=== PATIENT | female | born 1945 | race Caucasian/White ===

== ENCOUNTER 2016-11-29 10:00 | Emergency (ER) | payer MEDICARE, OTHER ==
[~2016-11-29] VITALS: Ht 162.6 cm; Wt 61.4 kg
[~2016-11-29 10:00] MED LIST: ALBU2.5V5 NEB; ALBU8.5H3 IH; ALPR1TAB2 PO; ASCO500T2 PO; ASPI81TA2 PO; ATOR10TA PO; ATOR10TA60 PO; BENZ100C2 PO; BUPR150T8 PO; BUPR200T PO; CALC500T27 PO; CARV12.5 PO; CHOL10003 PO; COFF400C PO; DEXT30CA6 PO; DICY20TA30 PO; DOCU-27 PO; ENOX40DI3 SQ; ESCI20TA10 PO; FISH1CAP PO; FLUO40CA9 PO; FLUT1BLS IH; FLUT1DIS3 IH; FLUT1DIS5 IH; GLUC1CAP48 PO; GUAI-42 PO; HYDR-2762 PO; HYDR-2868 PO; IBUP800T PO; IPRA3AMP NEB; LEVO50TA PO; LEVO88TA2 PO; LORA-434 PO; LOSA1TAB12 PO; LOSA1TAB17 PO; LUBI8CAP3 PO; LUTE20TA PO; MAGN2400 PO; MAGN250T5 PO; MELA10CA PO; MELA3TAB PO; MIRT15TA PO; MONT10TA9 PO; MULT-245 PO; OMEP40CA5 PO; PANT40TA3 PO; PARO20TA55 PO; POTA10CA PO; POTA20TA82 PO; POTA8TAB6 PO; PRED1TAB PO; PROC10TA57 PO; QUET100T PO; QUET150T PO; ROFL500T PO; TIOT18CA IH; UBID100C12 PO; VINP1POW MC; adderall PO; prevagen PO
[2016-11-29] MEDS ORDERED: IPRATRPIUM/ALBUTEROL 0.5/2.5MG 3 ML NEBU. ONE (10:23)
[2016-11-29 10:34] LABS: BASO % 0 % (0-3); EOS # 0.1 x10^3/uL (0.0-0.7); EOS % 1 % (0-3); HEMATOCRIT 36.2 % (36.0-47.0); HEMOGLOBIN 11.5 g/dL (12.0-15.5); LYMPH # 0.9 x10^3/uL (1.0-4.8); LYMPH % 11 % (24-48); MEAN CORPUSCULAR HEMOGLOBIN 29 pg (25-35); MEAN CORPUSCULAR HGB CONC 32 g/dL (31-37); MEAN CORPUSCULAR VOLUME 92 fL (79-100); MONO # 0.6 x10^3/uL (0.0-1.1); MONO % 8 % (0-9); NEUT # 6.8 x10^3uL (1.8-7.7); NEUT % 80 % (31-73); PLATELET COUNT 483 x10^3/uL (140-400); RED BLOOD COUNT 3.91 x10^6/uL (3.50-5.40); RED CELL DISTRIBUTION WIDTH 18.7 % (11.5-14.5); WHITE BLOOD COUNT 8.5 x10^3/uL (4.0-11.0)
[2016-11-29 10:35] LABS: HEMOGLOBIN ISTAT 12.6 gm/dL; POTASSIUM ISTAT 3.5 mmol/L (3.5-5.0)
[2016-11-29] MEDS ORDERED: FUROSEMIDE 40 MG/4 ML VIAL ONE (10:38)
[2016-11-29 10:48] LABS: ALBUMIN 3.4 g/dL (3.4-5.0); ALBUMIN/GLOBULIN RATIO 0.8 (1.0-1.7); CALCIUM 9.6 mg/dL (8.5-10.1); CREATININE 0.7 mg/dL (0.6-1.0); GFR 82.5; POTASSIUM 3.2 mmol/L (3.5-5.1); TOTAL BILIRUBIN 0.3 mg/dL (0.2-1.0); TOTAL PROTEIN 7.5 g/dL (6.4-8.2)
[2016-11-29 10:58] LABS: BGAS PH 7.35 (7.35-7.45)
[2016-11-29] MEDS ORDERED: IOHEXOL 300 MG/ML 75 ML VIAL. IV ONE (11:00)
--- NOTE | 2016-11-29 11:01 | RAD ---
EXAM: Chest, single view. HISTORY: Chest pain. COMPARISON: 11/09/2016. FINDINGS: A frontal view of the chest is obtained. There is no infiltrate, effusion or pneumothorax. The cardiac silhouette is upper normal in size, likely due to portable technique. There are few calcified granulomas.. IMPRESSION: No acute pulmonary finding.
[2016-11-29] MEDS ORDERED: methylPREDNISolone SOD SUCC PF 125 MG/2 ML VIAL. IV ONE (11:10)
[2016-11-29] MEDS ORDERED: FUROSEMIDE 40 MG/4 ML VIAL IVP ONE (11:10)
--- NOTE | 2016-11-29 11:16 | ED.ADGEN ---
Past History Past Medical History: COPD Past Surgical History: , Hysterectomy Smoking: Quit Greater Than 1 Year Alcohol Use: None Drug Use: None Adult General Chief Complaint Chief Complaint Shortness of breath HPI HPI Patient is a 71-year-old female with history of COPD currently residing snf for treatment of rib fractures and bilateral lower extremity fractures resents today acute respiratory distress. Patient states she been short of breath last night, had a set of wet nonproductive cough and breathlessness became more short of breath this morning. She denies fever chills or sweats. EMS was contacted, the patient normally requires 2-1/2 L of supplemental oxygen by nasal cannula. On EMS arrival, patient's O2 saturation was 87% on 4 L. She was placed in a nonrebreather mask on 100% O2. On ED arrival, the patient's respirations are labored with sternal retractions. Breath sounds are diminished bilaterally. Patient is able to speak in 3-5 word sentences. Review of Systems Review of Systems ROS as per HPI. Current Medications Current Medications Current Medications Medications (Trade) Dose Ordered Sig/Ankit Start Time Stop Time Status Last Admin Dose Admin Albuterol/ Ipratropium (Duoneb) 3 ml STK-MED ONCE 11/29/16 10:23 11/29/16 10:24 DC Furosemide (Lasix) 40 mg STK-MED ONCE 11/29/16 10:38 11/29/16 10:39 DC Iohexol (Omnipaque 300 Mg/ml) 75 ml 1X ONCE 11/29/16 11:00 11/29/16 11:01 DC Lorazepam (Ativan) 0.5 mg 1X ONCE 11/29/16 11:30 11/29/16 11:31 11/29/16 11:12 0.5 MG Methylprednisolone Sodium Succinate (Solu-Medrol 125mg Vial) 125 mg 1X ONCE 11/29/16 11:10 11/29/16 11:11 DC 11/29/16 10:41 125 MG Allergies Allergies Allergies Coded Allergies Type Severity Reaction Last Updated Verified Latex, Natural Rubber Allergy Intermediate 11/29/16 No bacitracin Allergy Intermediate 11/29/16 No Physical Exam Physical Exam Constitutional: Well nourished, developed, anxious, moderate respiratory distress HENT: Normocephalic, atraumatic, bilateral external ears normal, oropharynx moist, no oral exudates, nose normal. [] Eyes: PERRLA, EOMI, conjunctiva normal. Neck: Normal range of motion, no tenderness, supple. Cardiovascular:Heart rate regular rhythm, no murmur. Lungs & Thorax: Respirations labored, tachypnea, significantly diminished breath sounds bilaterally, worse rhonchi present throughout. Abdomen: Bowel sounds normal, soft, no tenderness. Skin: Warm, dry, no erythema, no rash. Extremities: Left lower extremity, cast. Right lower lobe extremity, 1+ edema. Neurologic: Alert and oriented X 3, normal motor function, normal sensory function, no focal deficits noted. . [] Current Patient Data Vital Signs Vital Signs Date Time Temp Pulse Resp B/P Pulse Ox O2 Delivery O2 Flow Rate FiO2 11/29/16 11:09 139 21 159/67 91 BiPAP/CPAP 11/29/16 10:48 7.0 11/29/16 10:10 98.0 Lab Results Laboratory Tests Test 11/29/16 09:30 11/29/16 10:13 11/29/16 10:32 11/29/16 11:00 Blood pH 7.35 (7.35-7.45) Blood Gas PCO2 65mmHg (35-45) *H Blood Gas PO2 203mmHg (71-100) H Blood Gas HCO3 35mmol/L (22-26) H Arterial Bld O2 Saturation (Calc) 99% (92-99) FiO2 48% White Blood Count 8.5x10^3/uL (4.0-11.0) Red Blood Count 3.91x10^6/uL (3.50-5.40) Hemoglobin 11.5g/dL (12.0-15.5) L Hematocrit 36.2% (36.0-47.0) Mean Corpuscular Volume 92fL (79-100) Mean Corpuscular Hemoglobin 29pg (25-35) Mean Corpuscular Hemoglobin Concent 32g/dL (31-37) Red Cell Distribution Width 18.7% (11.5-14.5) H Platelet Count 483x10^3/uL (140-400) H Neutrophils (%) (Auto) 80% (31-73) H Lymphocytes (%) (Auto) 11% (24-48) L Monocytes (%) (Auto) 8% (0-9) Eosinophils (%) (Auto) 1% (0-3) Basophils (%) (Auto) 0% (0-3) Neutrophils # (Auto) 6.8x10^3uL (1.8-7.7) Lymphocytes # (Auto) 0.9x10^3/uL (1.0-4.8) L Monocytes # (Auto) 0.6x10^3/uL (0.0-1.1) Eosinophils # (Auto) 0.1x10^3/uL (0.0-0.7) Basophils # (Auto) 0.0x10^3/uL (0.0-0.2) Prothrombin Time 49.9SEC (9.4-11.4) H Prothrombin Time INR 4.8 (0.9-1.1) *H Sodium Level 140mmol/L (136-145) Potassium Level 3.2mmol/L (3.5-5.1) L Chloride Level 99mmol/L (98-107) Carbon Dioxide Level 36mmol/L (21-32) H Anion Gap 5 (6-14) L 14mmol/L (6-14) Blood Urea Nitrogen 13mg/dL (7-20) Creatinine 0.7mg/dL (0.6-1.0) Estimated GFR (Cockcroft-Gault) 82.5 BUN/Creatinine Ratio 19 (6-20) Glucose Level 121mg/dL (70-99) H 119mg/dL (60-99) H Calcium Level 9.6mg/dL (8.5-10.1) Total Bilirubin 0.3mg/dL (0.2-1.0) Aspartate Amino Transferase (AST) 22U/L (15-37) Alanine Aminotransferase (ALT) 18U/L (14-59) Alkaline Phosphatase 122U/L (46-116) H RB-Qup-M-Type Natriuretic Peptide 216pg/mL (0-124) H Total Protein 7.5g/dL (6.4-8.2) Albumin 3.4g/dL (3.4-5.0) Albumin/Globulin Ratio 0.8 (1.0-1.7) L POC Hemoglobin 12.6gm/dL POC Hematocrit 37% POC Sodium 138mmol/L (135-145) POC Potassium 3.5mmol/L (3.5-5.0) POC Chloride 91mmol/L (98-110) L POC Total CO2 38mmol/L (23-32) H POC Blood Urea Nitrogen 14mg/dL (8-26) POC Creatinine 0.6mg/dL (0.5-1.4) POC Ionized Calcium (Scott) 1.18mmol/L (1.13-1.32) Urine Collection Type U cath Urine Color Yellow Urine Clarity Clear Urine pH 7.0 Urine Specific [place] 1.015 Urine Protein Neg (NEG-TRACE) Urine Glucose (UA) Negmg/dL (NEG) Urine Ketones (Stick) 15mg/dL (NEG) Urine Blood Trace (NEG) Urine Nitrite Neg (NEG) Urine Bilirubin Neg (NEG) Urine Urobilinogen Dipstick 0.2mg/dL (0.2 mg/dL) Urine Leukocyte Esterase Neg (NEG) Urine RBC Occ/HPF (0-2) Urine WBC Occ/HPF (0-4) Urine Squamous Epithelial Cells Occ/LPF Urine Bacteria 0/HPF (0-FEW) Urine Hyaline Casts Occ/HPF EKG EKG [EKG: Sinus tach, interpretation limited due to artifact.] Radiology/Procedures Radiology/Procedures [Chest x-ray: Increased pulmonary vascular congestion with COPD findings] Impressions: Acute respiratory distress with respiratory failure secondary to acute COPD exacerbation with concern for mucous plugging Course & Med Decision Making Course & Med Decision Making Pertinent Labs and Imaging studies reviewed. (See chart for details) [Solu-Medrol, Albuterol nebulized treatment given, BiPAP initiated. Patient breathing more comfortably, but remains tachycardic. Concern for possible mucous plugging. Dr. Herrera accepts to [facility] ICU. Final Impression Final Impression 1 acute respiratory failure with hypercapnia 2 COPD exacerbation] Problems: Dragon Disclaimer Dragon Disclaimer This electronic medical record was generated, in whole or in part, using a voice recognition dictation system. HIPOLITO NAIK DO Nov 29, 2016 11:16
[2016-11-29 11:18] LABS: BILIRUBIN,URINE NEG (NEG); CLARITY,URINE CLEAR; COLOR,URINE YELLOW; GLUCOSE,URINE NEG (NEG)
[2016-11-29 11:19] LABS: BACTERIA,URINE 0 /HPF (0-FEW); HYALINE CASTS, URINE OCC /HPF; NITRITE,URINE NEG (NEG); RBC,URINE OCC /HPF (0-2); SQUAMOUS EPITHELIAL CELL,UR OCC /LPF; UROBILINOGEN,URINE 0.2 mg/dL (0.2 mg/dL); WBC,URINE OCC /HPF (0-4)
[2016-11-29] MEDS ORDERED: LORAZEPAM 2 MG/ML VIAL IV ONE (11:30)
--- NOTE | 2016-11-29 11:45 | ACF ---
Admission Criteria Forms RESPIRATORY FAILURE GRG Clinical Indications for Admission to Inpatient Care (Place 'X' for any and all applicable criteria): Hospital admission is needed for appropriate care of the patient because of acute respiratory failure or insufficiency as indicated by ANY ONE of the following(1)(2)(3)(4)(5)(6)(7)(8): [X]I. Mechanical ventilation needed (acute invasive or noninvasive) [ ]II. Severe ventilation deficit as indicated by ANY ONE of the following (9) [ ]a) Respiratory acidosis (pH less than 7.32 and partial pressure of carbon dioxide greater than 40 mm Hg (5.3 kPa)) [ ]b) Partial pressure of carbon dioxide greater than 44 mm Hg (5.9 kPa ) (new) [ ]c) Airflow measurements less than 25% of predicted (eg, peak expiratory flow rate less than 100 L/minute) [ ]d) Forced vital capacity less than 15 mL/kg of ideal body weight, or 50% decrease in vital capacity from baseline [ ]III. Noncardiac pulmonary edema not resolving with rapid emergency treatment (8) [ ]IV. Severe respiratory distress as indicated by ANY ONE of the following: [ ]a) Severe tachypnea (respiratory rate greater than 30, greater than 45 for 6-month-old, greater than 60 for ) [ ]b) Severe hypoxemia (partial pressure of oxygen less than 50 mm Hg ( 6.7 kPa) on greater than 50% oxygen or partial pressure of oxygen to FIO2 ratio less than 200) [ ]c) Mental status deterioration from respiratory disease [ ]V. Airway obstruction or inadequate protection [A](10)(11) The original [employer] content created by [employer] has been revised. The portions of the content which have been revised are identified through the use of italic text or in bold, and [employer] has neither reviewed nor approved the modified material. All other unmodified content is copyright [employer]. Please see references footnoted in the original [employer] edition 2016 Admission Criteria Met?: Yes CA EASTMAN Nov 29, 2016 11:45
--- NOTE | 2016-11-29 12:18 | EKG ---
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
[2016-11-29 12:37] VITALS: BP 155/89
== END 2016-11-29 12:43 | disposition short-term general hospital (02) ==
LOC: ER 10:00
DX: J44.1 Chronic obstructive pulmonary disease with (acute) exacerbation (principal); J96.02 Acute respiratory failure with hypercapnia; Z88.1 Allergy status to other antibiotic agents; Z91.040 Latex allergy status; Z90.710 Acquired absence of both cervix and uterus; Z87.891 Personal history of nicotine dependence
CPT/HCPCS: 36415; 36600; 51702; 71010; 80053; 81001; 82803; 83880; 84484; 85027; 85610; 87040; 93005; 94640; 94660; 96374; 96375; 99285; J1940; J2060; J2930; 80047

== ENCOUNTER 2017-03-15 20:40 | Emergency (ER) | payer MEDICARE, OTHER ==
[~2017-03-15] VITALS: Ht 162.6 cm; Wt 61.4 kg
[~2017-03-15 20:40] MED LIST changes: -ALBU8.5H3 IH; +ALBU8.5H8 IH; +ASPI-630 PO; -ASPI81TA2 PO; +BENZ100C15 PO; -BENZ100C2 PO; -CALC500T27 PO; +CALC500T30 PO; +DOCU-109 PO; -DOCU-27 PO; -ESCI20TA10 PO; +GUAI-107 PO; -GUAI-42 PO; -IBUP800T PO; +IBUP800T19 PO; +LEXAPRO20 MG PO; -LUBI8CAP3 PO; +LUBI8CAP4 PO; +MAGN250T10 PO; -MAGN250T5 PO; -MELA3TAB PO; +MELA3TAB2 PO; -PARO20TA55 PO; +PARO20TA99 PO; -ROFL500T PO; +ROFL500T7 PO; -UBID100C12 PO; +UBID100C40 PO
[2017-03-15] MEDS ORDERED: IV NORMAL SALINE 1,000ML 1,000 ML IV ONE (21:15)
[2017-03-15 21:54] LABS: BGAS PH 7.35 (7.35-7.45)
--- NOTE | 2017-03-15 22:00 | EKG ---
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
--- NOTE | 2017-03-15 22:05 | RAD ---
CT HEAD PQRS STATEMENT: One or more of the following in the visualized dose reduction techniques were utilized for this study: 1. Automatic exposure control, 2. Adjustment of the mA and/or kV according to patient size, 3. Use of iterative reconstruction technique INDICATION: AMS, HX STROKE TECHNIQUE: 5 mm contiguous axial images were obtained from the skull base to the vertex in both bone and soft tissue algorithm. FINDINGS: There is an cephalization the right posterior cerebral artery distribution from an old infarct. No evidence of intracranial hemorrhage. No extra-axial fluid collections. No mass effect or midline shift. Ventricular size is appropriate. Basal cisterns are patent. No fractures identified.Ortiz-white differentiation is preserved.Globes and orbits are within normal limits. Paranasal sinuses and mastoid air cells are clear. IMPRESSION: No acute intracranial abnormality. 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 Electronically signed by: Nikhil Shane MD (03/15/2017 10:02 PM) [facility]
[2017-03-15 22:16] LABS: BASO # 0.1 x10^3/uL (0.0-0.2); BASO % 1 % (0-3); EOS # 0.4 x10^3/uL (0.0-0.7); EOS % 5 % (0-3); HEMATOCRIT 32.8 % (36.0-47.0); HEMOGLOBIN 10.6 g/dL (12.0-15.5); LYMPH # 2.4 x10^3/uL (1.0-4.8); LYMPH % 32 % (24-48); MEAN CORPUSCULAR HEMOGLOBIN 29 pg (25-35); MEAN CORPUSCULAR HGB CONC 32 g/dL (31-37); MEAN CORPUSCULAR VOLUME 91 fL (79-100); MONO # 0.4 x10^3/uL (0.0-1.1); MONO % 6 % (0-9); NEUT # 4.2 x10^3uL (1.8-7.7); NEUT % 56 % (31-73); PLATELET COUNT 419 x10^3/uL (140-400); RED BLOOD COUNT 3.62 x10^6/uL (3.50-5.40); RED CELL DISTRIBUTION WIDTH 15.6 % (11.5-14.5); WHITE BLOOD COUNT 7.4 x10^3/uL (4.0-11.0)
--- NOTE | 2017-03-15 22:22 | PHYS DOC ---
Past History Past Medical History: COPD Past Surgical History: , Hysterectomy, Other Smoking: Quit Greater Than 1 Year Alcohol Use: None Drug Use: None Adult General Chief Complaint Chief Complaint: FATIGUE HPI HPI Patient is a 71-year-old female presenting to the emergency department via EMS for evaluation of increased lethargy that started this morning. Patient said that she'll he took one of her hydrocodone this morning and has not taken any since. She was reportedly difficult to arouse per the and he had to shake her to wake her up. Patient is a COPD patient and on 2-3 L of oxygen at baseline. Patient denies any pain fevers chills nausea vomiting or other systemic symptoms. Review of Systems Review of Systems Constitutional: Denies fever or chills [] Eyes: Denies change in visual acuity, redness, or eye pain [] HENT: Denies nasal congestion or sore throat [] Respiratory: Denies cough or shortness of breath [] Cardiovascular: No additional information not addressed in HPI [] GI: Denies abdominal pain, nausea, vomiting, bloody stools or diarrhea [] : Denies dysuria or hematuria [] Musculoskeletal: Denies back pain or joint pain [] Integument: Denies rash or skin lesions [] Neurologic: Denies headache, focal weakness or sensory changes Current Medications Current Medications Current Medications Medications (Trade) Dose Ordered Sig/Ankit Start Time Stop Time Status Last Admin Dose Admin Sodium Chloride 1,000 ml @ 1,000 mls/hr 1X ONCE 03/15/17 21:15 03/15/17 22:14 DC Allergies Allergies Allergies Coded Allergies Type Severity Reaction Last Updated Verified Latex, Natural Rubber Allergy Intermediate 11/29/16 No bacitracin Allergy Intermediate 11/29/16 No Physical Exam Physical Exam Constitutional: Well developed, well nourished, no acute distress, non-toxic appearance. [] HENT: Normocephalic, atraumatic, bilateral external ears normal, oropharynx moist, no oral exudates, nose normal. [] Eyes: PERRLA, EOMI, conjunctiva normal, no discharge. [] Neck: Normal range of motion, no tenderness, supple, no stridor. [] Cardiovascular:Heart rate regular rhythm, no murmur [] Lungs & Thorax: Bilateral breath sounds clear to auscultation [] Abdomen: Bowel sounds normal, soft, no tenderness, no masses, no pulsatile masses. [] Skin: Warm, dry, no erythema, no rash. [] Back: No tenderness, no CVA tenderness. [] Extremities: No tenderness, no cyanosis, no clubbing, ROM intact, no edema. [] Neurologic: Alert and oriented X 3, normal motor function, normal sensory function, no focal deficits noted. [] Current Patient Data Vital Signs Vital Signs Date Time Temp Pulse Resp B/P (MAP) Pulse Ox O2 Delivery O2 Flow Rate FiO2 03/15/17 20:40 98.3 89 21 95 Nasal Cannula 3.0 Lab Results Laboratory Tests Test 03/15/17 21:40 03/15/17 21:50 Blood pH 7.35 (7.35-7.45) Blood Gas PCO2 54 mmHg (35-45) H Blood Gas PO2 90 mmHg (71-100) Blood Gas HCO3 30 mmol/L (22-26) H Arterial Bld O2 Saturation (Calc) 96 % (92-99) FiO2 32 % White Blood Count 7.4 x10^3/uL (4.0-11.0) Red Blood Count 3.62 x10^6/uL (3.50-5.40) Hemoglobin 10.6 g/dL (12.0-15.5) L Hematocrit 32.8 % (36.0-47.0) L Mean Corpuscular Volume 91 fL (79-100) Mean Corpuscular Hemoglobin 29 pg (25-35) Mean Corpuscular Hemoglobin Concent 32 g/dL (31-37) Red Cell Distribution Width 15.6 % (11.5-14.5) H Platelet Count 419 x10^3/uL (140-400) H Neutrophils (%) (Auto) 56 % (31-73) Lymphocytes (%) (Auto) 32 % (24-48) Monocytes (%) (Auto) 6 % (0-9) Eosinophils (%) (Auto) 5 % (0-3) H Basophils (%) (Auto) 1 % (0-3) Neutrophils # (Auto) 4.2 x10^3uL (1.8-7.7) Lymphocytes # (Auto) 2.4 x10^3/uL (1.0-4.8) Monocytes # (Auto) 0.4 x10^3/uL (0.0-1.1) Eosinophils # (Auto) 0.4 x10^3/uL (0.0-0.7) Basophils # (Auto) 0.1 x10^3/uL (0.0-0.2) EKG EKG Normal sinus rhythm at 87 bpm with normal axis no obvious ST elevation or depression and normal T waves. Radiology/Procedures Radiology/Procedures Chest x-ray shows hyperinflation no obvious free air or pneumothorax or opacity. CT HEAD PQRS STATEMENT: One or more of the following in the visualized dose reduction techniques were utilized for this study: 1. Automatic exposure control, 2. Adjustment of the mA and/or kV according to patient size, 3. Use of iterative reconstruction technique INDICATION: AMS, HX STROKE TECHNIQUE: 5 mm contiguous axial images were obtained from the skull base to the vertex in both bone and soft tissue algorithm. FINDINGS: There is an cephalization the right posterior cerebral artery distribution from an old infarct. No evidence of intracranial hemorrhage. No extra-axial fluid collections. No mass effect or midline shift. Ventricular size is appropriate. Basal cisterns are patent. No fractures identified.Ortiz-white differentiation is preserved.Globes and orbits are within normal limits. Paranasal sinuses and mastoid air cells are clear. IMPRESSION: No acute intracranial abnormality. 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 Electronically signed by: Nikhil Shane MD (03/15/2017 10:02 PM) [facility] DICTATED AND SIGNED BY: NIKHIL SHANE MD DATE: 03/15/17 2200 Course & Med Decision Making Course & Med Decision Making Patient with undifferentiated lethargy but she is awake and alert and oriented 3 on my exam. We'll check screening labs CT and reassess. CO2 is slightly elevated I do not think this is the cause of her lethargy. Patient does have alcohol in her system which was surprising to me and I asked and they said that she had 5 ounces of alcohol today. Patient is now awake alert and oriented eating and drinking and in no obvious distress. I told him it is very dangerous for her to be drinking alcohol with opioids in addition to her COPD as she could stop breathing and at any time with multiple respiratory depressants in her system. Patient wants to go home and wants to take her home as well. I see no reason for emergent admission at this times she'll be discharged in stable condition. They said that she is on Coumadin however her INR is 1.0 psych told him that they need to be taking the warfarin and have her INR rechecked as she may be resistant to it. She has no signs or symptoms of DVT or PE at this time so she'll be discharged in stable condition told to avoid respiratory depressants follow with Dr. Perez tomorrow or the next day and come back to the ER sooner with any worsening pain fevers vomiting or other general concerns. Patient and verbalized understanding of the above plan. Dragon Disclaimer Dragon Disclaimer This chart was dictated in whole or in part using Voice Recognition software in a busy, high-work load, and often noisy Emergency Department environment. It may contain unintended and wholly unrecognized errors or omissions. Departure Departure: Impression: Primary Impression: Lethargy Additional Impressions: Alcohol abuse Narcotic drug use COPD (chronic obstructive pulmonary disease) Disposition: 01 HOME, SELF-CARE Condition: GOOD Referrals: CLARA SAXENA MD (PCP) Patient Instructions: Fatigue Additional Instructions: FOLLOW WITH YOUR PCP LATER THIS WEEK. COME BACK TO THE ED WITH ANY NEW OR WORSENING PAIN, FEVERS, OR OTHER GENERAL CONCERNS. THANK YOU! Problem Qualifiers SAUD RUBY DO Mar 15, 2017 22:22
[2017-03-15 22:29] LABS: ACETAMIN < 2.0 mcg/mL (10-30); ETHANOL 132 mg/dL (0-10); SALIC 0.5 mg/dL (2.8-20.0)
[2017-03-15 22:33] LABS: ALBUMIN 3.2 g/dL (3.4-5.0); ALBUMIN/GLOBULIN RATIO 0.8 (1.0-1.7); CALCIUM 9.3 mg/dL (8.5-10.1); CREATININE 0.8 mg/dL (0.6-1.0); GFR 70.7; MAGNESIUM 1.6 mg/dL (1.8-2.4); POTASSIUM 4.6 mmol/L (3.5-5.1); TOTAL BILIRUBIN 0.2 mg/dL (0.2-1.0); TOTAL PROTEIN 7.1 g/dL (6.4-8.2)
[2017-03-15 22:41] LABS: BARBITURATES NEG (NEG); BENZODIAZEPINES POS (NEG); CANNABINOIDS NEG (NEG); COCAINE NEG (NEG); METHADONE NEG (NEG); OPIATES POS (NEG); PHENCYCLIDINE NEG (NEG)
[2017-03-15 22:45] LABS: AMPHETAMINE/METHAMPHETAMINE POS (NEG)
[2017-03-15] MEDS ORDERED: MAGNESIUM OXIDE 400 MG TABLET PO ONE (23:00)
[2017-03-15 23:02] LABS: BILIRUBIN,URINE NEG (NEG); CLARITY,URINE CLEAR; COLOR,URINE YELLOW; GLUCOSE,URINE NEG (NEG)
[2017-03-15 23:03] LABS: BACTERIA,URINE 0 /HPF (0-FEW); NITRITE,URINE NEG (NEG); RBC,URINE RARE /HPF (0-2); SQUAMOUS EPITHELIAL CELL,UR FEW /LPF; UROBILINOGEN,URINE 0.2 mg/dL (0.2 mg/dL)
[2017-03-15 23:04] LABS: HYALINE CASTS, URINE FEW /HPF
[2017-03-15 23:55] VITALS: BP 118/68
--- NOTE | 2017-03-16 07:59 | RAD ---
Portable chest, 03/15/2017: History: Altered mental status, dehydration Comparison is made to a study from 11/29/2016. The heart size and pulmonary vascularity are normal. There is mild tortuosity of the thoracic aorta. There are mild scattered parenchymal scars. A calcified granuloma is present in the right base. There appears to be minimal right basilar linear atelectasis. No pulmonary consolidation is seen. There is no evidence of pleural fluid. IMPRESSION: Minimal right basilar atelectasis and/or scarring.
== END 2017-03-16 00:23 | disposition home or self-care (01) ==
LOC: ER 20:40
DX: R53.83 Other fatigue (principal); F10.10 Alcohol abuse, uncomplicated; F19.10 Other psychoactive substance abuse, uncomplicated; J44.9 Chronic obstructive pulmonary disease, unspecified; Z79.01 Long term (current) use of anticoagulants; Z87.891 Personal history of nicotine dependence; Z88.1 Allergy status to other antibiotic agents; Z91.040 Latex allergy status
CPT/HCPCS: 36415; 36600; 70450; 71010; 80053; 80305; 81001; 82550; 82803; 83690; 83735; 83880; 84443; 84484; 85027; 85610; 85730; 93005; 96360; 99285; G0480; G0481; J7030

== ENCOUNTER → 2017-10-13 | Outpatient (CLI) | payer MEDICARE, OTHER ==
[~2017-10-13] MED LIST changes: +BENZ-8 PO; -BENZ100C15 PO; -GUAI-107 PO; +GUAI-108 PO; -LOSA1TAB17 PO; +LOSA1TAB22 PO
== END | disposition home or self-care (01) ==
LOC: CLNUT 16:23
PROVIDERS: ATTEND Family Medicine
DX: Z71.3 Dietary counseling and surveillance (principal); E11.65 Type 2 diabetes mellitus with hyperglycemia; I10 Essential (primary) hypertension; Z87.891 Personal history of nicotine dependence
CPT/HCPCS: 97802

== ENCOUNTER 2018-02-13 17:42 | Inpatient (IN) | payer MEDICARE, OTHER ==
[~2018-02-13] VITALS: Ht 162.6 cm; Wt 59.0 kg
[~2018-02-13 17:42] MED LIST changes: +LORA-254 PO; -LORA-434 PO
--- NOTE | 2018-02-13 18:05 | NUR ---
The patient, HERIBERTO GIL, 72 y/o, F admitted by CLARA SAXENA MD, was given written information regarding hospital policies, unit procedures and contact persons. Valuables were checked and noted.
[2018-02-13] MEDS ORDERED: ALBUTEROL SULFATE 2.5 MG/3 ML NEBU. NEB PRN (18:15)
[2018-02-13 18:19] VITALS: BP 94/63
[2018-02-13 19:46] LABS: BASO % 0 % (0-3); EOS # 0.2 x10^3/uL (0.0-0.7); EOS % 2 % (0-3); HEMATOCRIT 31.9 % (36.0-47.0); HEMOGLOBIN 10.7 g/dL (12.0-15.5); LYMPH # 1.2 x10^3/uL (1.0-4.8); LYMPH % 13 % (24-48); MEAN CORPUSCULAR HEMOGLOBIN 32 pg (25-35); MEAN CORPUSCULAR HGB CONC 34 g/dL (31-37); MEAN CORPUSCULAR VOLUME 96 fL (79-100); MONO # 0.9 x10^3/uL (0.0-1.1); MONO % 10 % (0-9); NEUT # 7.4 x10^3uL (1.8-7.7); NEUT % 76 % (31-73); PLATELET COUNT 287 x10^3/uL (140-400); RED BLOOD COUNT 3.34 x10^6/uL (3.50-5.40); RED CELL DISTRIBUTION WIDTH 14.2 % (11.5-14.5); WHITE BLOOD COUNT 9.8 x10^3/uL (4.0-11.0)
[2018-02-13] MEDS: IPRATRPIUM/ALBUTEROL 0.5/2.5MG 3 ML NEBU. NEB SCH (20:00)
[2018-02-13] MEDS ORDERED: IPRATRPIUM/ALBUTEROL 0.5/2.5MG 3 ML NEBU. NEB SCH (20:00)
[2018-02-13] MEDS ORDERED: ROFLUMILAST 500 MCG TABLET PO SCH (21:00)
[2018-02-13] MEDS ORDERED: QUETIAPINE FUMARATE 200 MG PO SCH (21:00)
[2018-02-13 21:16] LABS: SEDIMENTATION RATE 55 (0-25)
--- NOTE | 2018-02-13 21:16 | EKG ---
[address] [address] Test Date: 2018-02-13 Test Time: 21:11:25 Pat Name: HERIBERTO GIL Department: Room: 105 A Gender: F [employer]: : 1945 Requested By: CLARA SAXENA Order Number: [id number] Reading MD: Serjio Martinez Measurements Intervals [place] Rate: 72 P: 59 NV: 178 QRS: 36 QRSD: 84 T: 55 QT: 406 QTc: 446 Interpretive Statements SINUS RHYTHM QRS(T) CONTOUR ABNORMALITY CONSIDER ANTEROSEPTAL MYOCARDIAL DAMAGE POSSIBLY ABNORMAL ECG Electronically Signed On 02-20-2018 12:48:38 CDT by Serjio Martinez
[2018-02-13] MEDS ORDERED: PROCHLORPERAZINE 5 MG TABLET. PO PRN (21:30)
[2018-02-13] MEDS: IV DEXTROSE 5 %-0.2 % NACL 1,000 ML IV SCH (21:30)
[2018-02-13 21:49] LABS: ALBUMIN 3.3 g/dL (3.4-5.0); ALBUMIN/GLOBULIN RATIO 0.9 (1.0-1.7); CALCIUM 9.4 mg/dL (8.5-10.1); CREATININE 1.2 mg/dL (0.6-1.0); GFR 44.2; POTASSIUM 4.2 mmol/L (3.5-5.1); TOTAL BILIRUBIN 0.5 mg/dL (0.2-1.0)
[2018-02-13 22:15] VITALS: BP 105/68
[2018-02-13] MEDS: CHOLECALCIFEROL (VITAMIN D3) 1,000 UNIT TABLET PO SCH (22:19)
[2018-02-13] MEDS: BENZONATATE 100 MG CAPSULE. PO SCH (22:19)
[2018-02-13] MEDS: GLUCOSAMINE/CHOND 500/400MG CAPSULE PO SCH (22:20)
[2018-02-13] MEDS: CALCIUM CARBONATE 500 MG TABLET PO SCH (22:20)
[2018-02-13] MEDS: HYDROcodone/APAP 7.5/325MG 1 TAB TABLET PO PRN (22:20)
[2018-02-13] MEDS: MIRTAZAPINE 15 MG TABLET PO SCH (22:20)
[2018-02-13] MEDS: guaiFENesin DM 600/30MG 1 TAB TAB.ER.12H PO SCH (22:20)
[2018-02-13] MEDS: DOCUSATE SODIUM 100 MG CAPSULE PO SCH (22:20)
[2018-02-13] MEDS: ALPRAZolam 0.5 MG TABLET PO SCH (22:20)
[2018-02-13] MEDS: hydrALAZINE 25 MG TABLET PO SCH (22:21)
[2018-02-13] MEDS: HEPARIN PF for SUB-Q USE 5,000 UNIT/0.5 ML VIAL. SQ SCH (22:22)
[2018-02-13 23:44] VITALS: BP 104/71
[2018-02-14] MEDS ORDERED: HYDR-2758 PO (00:37)
[2018-02-14] MEDS ORDERED: CALC600T23 PO (00:37)
[2018-02-14] MEDS ORDERED: POTA10TA10 PO (00:37)
[2018-02-14 01:48] LABS: BARBITURATES NEG (NEG); BENZODIAZEPINES POS (NEG); CANNABINOIDS NEG (NEG); COCAINE NEG (NEG); METHADONE NEG (NEG); OPIATES POS (NEG); PHENCYCLIDINE NEG (NEG)
[2018-02-14 01:50] LABS: BACTERIA,URINE 0 /HPF (0-FEW); BILIRUBIN,URINE NEG (NEG); CLARITY,URINE CLEAR; COLOR,URINE YELLOW; GLUCOSE,URINE NEG (NEG); NITRITE,URINE NEG (NEG); RBC,URINE 0 /HPF (0-2); UROBILINOGEN,URINE 0.2 mg/dL (0.2 mg/dL); WBC,URINE OCC /HPF (0-4)
[2018-02-14 02:03] LABS: AMPHETAMINE/METHAMPHETAMINE POS (NEG)
[2018-02-14] MEDS: IPRATRPIUM/ALBUTEROL 0.5/2.5MG 3 ML NEBU. NEB SCH ×4 (04:30→20:40)
[2018-02-14 05:51] VITALS: BP 95/61
[2018-02-14 06:38] LABS: BASO % 0 % (0-3); EOS # 0.3 x10^3/uL (0.0-0.7); EOS % 4 % (0-3); HEMATOCRIT 30.3 % (36.0-47.0); HEMOGLOBIN 10.2 g/dL (12.0-15.5); LYMPH # 2.4 x10^3/uL (1.0-4.8); LYMPH % 32 % (24-48); MEAN CORPUSCULAR HEMOGLOBIN 32 pg (25-35); MEAN CORPUSCULAR HGB CONC 34 g/dL (31-37); MEAN CORPUSCULAR VOLUME 96 fL (79-100); MONO # 0.7 x10^3/uL (0.0-1.1); MONO % 9 % (0-9); NEUT # 4.2 x10^3uL (1.8-7.7); NEUT % 55 % (31-73); PLATELET COUNT 265 x10^3/uL (140-400); RED BLOOD COUNT 3.16 x10^6/uL (3.50-5.40); WHITE BLOOD COUNT 7.6 x10^3/uL (4.0-11.0)
[2018-02-14 06:44] LABS: GFR 54.5; POTASSIUM 3.1 mmol/L (3.5-5.1)
[2018-02-14] MEDS ORDERED: LEVOTHYROXINE 50 MCG TABLET PO SCH (07:00)
[2018-02-14] MEDS ORDERED: CARVEDILOL 12.5 MG TABLET PO SCH (08:00)
[2018-02-14] MEDS ORDERED: PARoxetine 10 MG TABLET PO SCH (09:00)
[2018-02-14] MEDS ORDERED: LOSARTAN 50 MG TABLET. PO SCH (09:00)
[2018-02-14] MEDS ORDERED: NON FORMULARY ITEM (Fluticasone/Vilanterol (Breo Ellipta 200-25 Mcg INH) 1 PUFF) IH SCH (09:00)
[2018-02-14] MEDS: hydrALAZINE 25 MG TABLET PO SCH ×2 (09:00→15:08)
[2018-02-14] MEDS ORDERED: MULTIVITAMIN with MINERAL TABLET. PO SCH (09:00)
[2018-02-14] MEDS: hydroCHLOROthiazide 25 MG TABLET PO SCH ×2 (09:00→10:36)
[2018-02-14] MEDS ORDERED: DEXTROAMPHETAMINE PO SCH (09:00)
[2018-02-14] MEDS ORDERED: AMPHETAMINE PO SCH (09:00)
[2018-02-14] MEDS ORDERED: ELECTROLYTE (NON-ICU) PROTOCOL MC PRN (09:15)
--- NOTE | 2018-02-14 10:08 | PDOC2 ---
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 Last week she was on clear liquids 1 day and was NPO the following day. over the weekend it was warm and she slept well Tuesday night. When she woke up Tuesday morning and tried to get out of bed she was very dizzy and felt like she almost passed out. She felt like her legs were very weak and she knew something was very wrong. She went in to see her primary care provider and her blood pressure was quite low and he encouraged her to go to the emergency room. There they found that she was dehydrated and she was started on IV fluids and admitted for Monitoring. This morning her GFR has improved from 44 up to 50 and her potassium is low. If started are on the potassium replacement protocol. Her blood pressure has remained low in the 104 down to 95 systolic range. And she has not received her morning doses of antihypertensive this morning. in 2016 she was found to have a dilated aorta and she was scheduled to have a follow-up echocardiogram done in the office. It is been ordered for today. She denies any symptoms of chest pain, pressure or tightness. She has chronic dyspnea on exertion that she does not feel has changed or gotten worse. She denies any PND, orthopnea or lower extremity edema. She has not felt any palpitations. Allergies MORPHINE Medications Adderall 30 mg tablet Take 1 tablet(s) every day by oral route. Aspir-81 1 DAILY atorvastatin 10 mg tabletTake 1 tablet(s) every day by oral route. benzonatate 200 mg capsuleTake 1 capsule(s) 3 times a day by oral route. Breo Ellipta 200 mcg-25 mcg/dose powder for inhalation [id number] DAILY docusate sodium 100 mg capsule Fish Oil 340 mg-1,000 mg capsule Forteo 20 mcg/dose (600 mcg/2.4 mL) subcutaneous pen injector nightly furosemide 20 mg tablet Take 1 tablet(s) every day by oral route for 30 days. glucosamine-chondroitin 500 mg-400 mg capsule HYDROcodone 5 mg-acetaminophen 325 mg tablet levothyroxine 50 mcg tabletTake 1 tablet(s) every day by oral route. losartan 100 mg-hydrochlorothiazide 25 mg tabletTake 1 tablet(s) every day by oral route. melatonin 10 mg capsuleTake 1 capsule(s) every day by oral route. mirtazapine 15 mg tabletTake 1 tablet(s) every day by oral route. pantoprazole 40 mg tablet,delayed releaseTake 1 tablet(s) every day by oral route. potassium chloride ER 10 mEq capsule,extended release 2 capsules BID ProAir HFA 90 mcg/actuation aerosol inhaler Inhale 2 puff(s) every 4 hours by inhalation route for 30 days. prochlorperazine maleate 10 mg tabletTake 1 tablet(s) twice a day by oral route. prochlorperazine maleate 5 mg tablet QUEtiapine 200 mg tabletTake 1 tablet(s) every day by oral route. Spiriva with HandiHaler 18 mcg and inhalation capsules Trintellix 10 mg tabletTake 1 tablet(s) every day by oral route. Vitamin D3 1,000 unit capsuleTake 1 capsule(s) every day by oral route. Family History No family history of premature coronary artery disease. Social History Smoking Status: Former smoker Surgical History Hysterectomy Cataract Surgery rotator cuff repair, left shoulder Past Medical History High Cholesterol: Y Hypertension: Y COPD: Y ROS: review of 10 organ systems is negative except for as in HPI. Physical Exam Patient is a 72-year-old female. Constitutional: General Appearance: healthy-appearing, well-nourished, and well- developed. Level of Distress: chronically ill. Ambulation: in wheelchair. Psychiatric: Mental Status: normal mood and affect and active and alert. Orientation: to time, place, and person. Head: Head: normocephalic and atraumatic. Eyes: Lids and Conjunctivae: non-injected; No xanthelasma. EOMI. Lungs: Auscultation: no wheezing, rales/crackles, or rhonchi and breath sounds normal, good air movement Cardiovascular: Apical Impulse: not displaced. Heart Auscultation: normal S1 and S2; no murmurs, rubs, or gallops; and RRR. Neck vessels: no carotid bruits; Jugular venous pressure not elevated. Abdomen: Bowel Sounds: normal. Inspection and Palpation: soft and no tenderness. Musculoskeletal:: Motor Strength and Tone: normal tone and motor strength. Extremities: no cyanosis or edema. Neurologic: Cranial Nerves: grossly intact. Skin: Inspection and palpation: no rash or lesions. Back: Thoracolumbar Appearance: normal curvature. Procedures: ELECTROCARDIOGRAM (02/01/2018): Sinus rhythm with incomplete right bundle branch block. LEXISCAN NUCLEAR STRESS TEST IMPRESSION (02/27/2016): Mildly abnormal stress myocardial perfusion scan with a partially reversible defect in the distal inferior wall. This is likely secondary to differential background filtration from the right adjacent bowel artifact. However a small degree of ischemia cannot be excluded. The study is low risk with a summed differential score of 3. Normal left ventricular systolic function. Ejection fraction: 86%. There is no stress induced left ventricular dilatation or increase in lung to heart ratio. There were no stress induced ECG changes.There were no arrythmias. There was no stress induced chest pain. Compared to the report (images were not available for review) from the previous study performed on 12/04/2014, there was no significant change. ECHOCARDIOGRAM IMPRESSION (12/12/2014): The left ventricle is normal in size. There is normal left ventricular wall thickness. No significant regional wall motion abnormalities are identified on this technically difficult study. The left ventricular systolic function appears normal with an estimated ejection fraction of 69%. There is evidence of decreased diastolic compliance of the left ventricle consistent with mild diastolic dysfunction. The proximal ascending aorta appears mildly dilated at 3.9 cm. The estimated pulmonary artery systolic pressure is normal at 30 mmHg. No previous study available for comparison. Assessment / Plan Near syncope - likely secondary to dehydration from last week's procedures. She has been rehydrated and we will stop her hydrochlorothiazide for now. Hypotension/ hypertension-we will hold her hydrochlorothiazide and hydralazine. She can continue on Coreg and losartan to be spaced apart. Hypokalemia- supplement protocol has been ordered. Thoracic aortic aneurysm without rupture - She has an echocardiogram ordered for today. Hypercholesterolemia - Goal LDL < 100 mg/dL. Continue low-dose statin therapy. Chronic respiratory failure on oxygen. - patient states she has a baseline with her dyspnea on exertion. Current Medications Current Medications Albuterol Sulfate (Ventolin) 2.5 mg PRN Q4HRS PRN NEB SHORTNESS OF BREATH; Start 02/13/18 at 18:15 Calcium Carbonate/ Glycine (Oscal) 1,000 mg BID PO Last administered on at 22:20; Start 02/13/18 at 21:00 Vitamin D (Vitamin D3) 1,000 unit BID PO Last administered on 02/13/18at 22:19; Start 02/13/18 at 21:00 Guaifenesin (MUCINEX ER with DM) 1 tab BID PO Last administered on 02/13/18at 22 :20; Start 02/13/18 at 21:00 Acetaminophen/ Hydrocodone Bitart (Lortab 7.5/325) 1 tab PRN Q6HRS PRN PO PAIN Last administered on 02/13/18at 22:20; Start 02/13/18 at 18:15 Albuterol/ Ipratropium (Duoneb) 3 ml RTQID NEB ; Start 02/13/18 at 20:00; Stop 02/13/18 at 21:00; Status DC Alprazolam (Xanax) 1 mg TID PO Last administered on 02/13/18at 22:20; Start 07/23 at 21:00 Aspirin (Children'S Aspirin) 81 mg DAILYWBKFT PO ; Start 02/14/18 at 08:00 Atorvastatin Calcium (Lipitor) 10 mg QHS PO ; Start 02/14/18 at 21:00 Benzonatate (Tessalon Perle) 200 mg [id number] PO Last administered on 02/13/18at 22 :19; Start 02/13/18 at 21:00 Carvedilol (Coreg) 12.5 mg BIDWMEALS PO ; Start 02/14/18 at 08:00; Stop at 08:00; Status DC Non-Formulary Medication (Dextroamphetamine/ Amphetamine (Adderall Xr 30 Mg Capsule)) 30 mg DAILY PO ; Start 02/14/18 at 09:00 Docusate Sodium (Colace) 100 mg BID PO Last administered on 02/13/18at 22:20; Start 02/13/18 at 21:00 Non-Formulary Medication (Fluticasone/ Vilanterol (Breo Ellipta 200-25 Mcg INH) ) 1 puff DAILY IH ; Start 02/14/18 at 09:00; Stop 02/14/18 at 09:00; Status DC Glucosamine/ Chondroitin (Glucosamine-Chondroitin 500/400mg) 1 cap BID PO Last administered on 02/13/18at 22:20; Start 02/13/18 at 21:00 Hydralazine HCl (Apresoline) 25 mg TID PO Last administered on 02/13/18at 22:21 ; Start 02/13/18 at 21:00 Levothyroxine Sodium (Synthroid) 50 mcg DAILY07 PO ; Start 02/14/18 at 07:00 Losartan Potassium (Cozaar) 100 mg DAILY PO ; Start 02/14/18 at 09:00 Magnesium Hydroxide (Milk Of Magnesia) 2,400 mg QHS PO ; Start 02/14/18 at 21:00 Melatonin 3 mg QHS PO ; Start 02/14/18 at 21:00 Mirtazapine (Remeron) 15 mg QHS PO Last administered on 02/13/18at 22:20; Start 02/13/18 at 21:00 Montelukast Sodium (Singulair) 10 mg QHS PO ; Start 02/14/18 at 21:00 Multivitamins/ Calcium (Thera-M Plus) 1 tab DAILY PO ; Start 02/14/18 at 09:00 Pantoprazole Sodium (Protonix) 40 mg DAILYAC PO ; Start 02/14/18 at 07:30 Paroxetine HCl (Paxil) 50 mg DAILY PO ; Start 02/14/18 at 09:00 Potassium Chloride (Klor-Con) 40 meq BIDWMEALS PO ; Start 02/14/18 at 08:00 Prochlorperazine Maleate (Compazine) 10 mg PRN BID PRN PO NAUSEA/VOMITING; Start 02/13/18 at 21:30 Non-Formulary Medication (Quetiapine Fumarate (Seroquel Xr)) 200 mg HS PO Last administered on 02/13/18at 21:00; Start 02/13/18 at 21:00; Status UNV Non-Formulary Medication (Roflumilast (Daliresp)) 500 mcg HS PO ; Start at 21:00; Status UNV Dextrose/Sodium Chloride 1,000 ml @ 75 mls/hr [id number] IV Last administered on 02/13/18at 21:30; Start 02/13/18 at 21:00 Heparin Sodium (Porcine) (Heparin Sq) 5,000 unit BID SQ Last administered on 07/23at 22:22; Start 02/13/18 at 21:00 Albuterol/ Ipratropium (Duoneb) 3 ml RTQID NEB Last administered on 02/14/18at 04:30; Start 02/13/18 at 20:00 Hydrochlorothiazide (Hydrodiuril) 25 mg DAILY PO ; Start 02/14/18 at 09:00 Carvedilol (Coreg) 6.25 mg BIDWMEALS PO ; Start 02/14/18 at 08:00 Info (Non-Icu Electrolyte Protocol) 1 ea CONT PRN PRN MC PER PROTOCOL; Start at 09:15 Active Scripts Active Albuterol Sulfate Neb Soln (Albuterol Sulfate) 2.5 Mg/3 Ml Vial.neb 2.5 Mg NEB PRN Q4HRS PRN Duoneb 0.5-3(2.5) Mg/3 Ml (Albuterol/Ipratropium) 3 Ml Ampul.neb 3 Ml NEB RTQID Reported Potassium Chloride 10 Meq Tablet.er 20 Meq PO BID Hydrocodone-Apap 5-325 (Hydrocodone Bit/Acetaminophen) 1 Each Tablet 1 Tab PO PRN Q6HRS PRN Calcium Carbonate 600 Mg Tablet 1,200 Mg PO Montelukast Sodium Tablet (Montelukast Sodium) 10 Mg Tablet 10 Mg PO HS LAST DOSE GIVEN: DATE: TIME: NEXT DOSE DUE: DATE: TIME: Hydralazine Hcl 25 Mg Tablet 25 Mg PO TID LAST DOSE GIVEN: DATE: TIME: NEXT DOSE DUE: DATE: TIME: Coreg (Carvedilol) 12.5 Mg Tablet 12.5 Mg PO BIDWMEALS LAST DOSE GIVEN: DATE: TIME: NEXT DOSE DUE: DATE: TIME: Breo Ellipta 200-25 Mcg INH (Fluticasone/Vilanterol) 1 Each Blst.w.dev 1 Puff IH DAILY LAST DOSE GIVEN: DATE: TIME: NEXT DOSE DUE: DATE: TIME: Melatonin 3 Mg Tablet 9 Mg PO QHS LAST DOSE GIVEN: DATE: TIME: NEXT DOSE DUE: DATE: TIME: Losartan-Hctz 100-25 Mg Tab (Losartan/Hydrochlorothiazide) 1 Each Tablet 1 Tab PO DAILY LAST DOSE GIVEN: DATE: TIME: NEXT DOSE DUE: DATE: TIME: Xanax (Alprazolam) 1 Mg Tablet 1 Mg PO TID LAST DOSE GIVEN: DATE: TIME: NEXT DOSE DUE: DATE: TIME: Synthroid (Levothyroxine Sodium) 50 Mcg Tablet 75 Mcg PO DAILY LAST DOSE GIVEN: DATE: TIME: NEXT DOSE DUE: DATE: TIME: Milk Of Magnesia (Magnesium Hydroxide) 2,400 Mg/10 Ml Oral.susp 2,400 Mg PO HS Take 30ML at bedtime for constipation Hold for loose stools. LAST DOSE GIVEN: DATE: TIME: NEXT DOSE DUE: DATE: TIME: Lipitor (Atorvastatin Calcium) 10 Mg Tablet 10 Mg PO QHS LAST DOSE GIVEN: DATE: TIME: NEXT DOSE DUE: DATE: TIME: Remeron (Mirtazapine) 15 Mg Tablet 15 Mg PO HS LAST DOSE GIVEN: DATE: TIME: NEXT DOSE DUE: DATE: TIME: Compazine (Prochlorperazine Maleate) 10 Mg Tablet 10 Mg PO PRN BID PRN LAST DOSE GIVEN: DATE: TIME: NEXT DOSE DUE: DATE: TIME: Colace (Docusate Sodium) 100 Mg Capsule 100 Mg PO DAILY LAST DOSE GIVEN: DATE: TIME: NEXT DOSE DUE: DATE: TIME: Paxil (Paroxetine Hcl) 20 Mg Tablet 50 Mg PO DAILY LAST DOSE GIVEN: DATE: TIME: NEXT DOSE DUE: DATE: TIME: Adderall Xr 30 Mg Capsule (Dextroamphetamine/Amphetamine) 30 Mg Cap.er.24h 30 Mg PO DAILY LAST DOSE GIVEN: DATE: TIME: NEXT DOSE DUE: DATE: TIME: Seroquel Xr (Quetiapine Fumarate) 150 Mg Tab.er.24h 200 Mg PO HS LAST DOSE GIVEN: DATE: TIME: NEXT DOSE DUE: DATE: TIME: Benzonatate 100 Mg Capsule 200 Mg PO BID LAST DOSE GIVEN: DATE: TIME: NEXT DOSE DUE: DATE: TIME: Protonix (Pantoprazole Sodium) 40 Mg Tablet.dr 40 Mg PO DAILY LAST DOSE GIVEN: DATE: TIME: NEXT DOSE DUE: DATE: TIME: Aspirin 81 Mg Tab.chew 1 Tab PO DAILY LAST DOSE GIVEN: DATE: TIME: NEXT DOSE DUE: DATE: TIME: Vitamin D3 (Cholecalciferol (Vitamin D3)) 1,000 Unit Tablet 1,000 Unit PO DAILY LAST DOSE GIVEN: DATE: TIME: NEXT DOSE DUE: DATE: TIME: Glucosamine & Chondroitin Cap (Gluc 2KCL/Chondr/[place] Hy/Hy Ac) 1 Each Capsule 1 Cap PO BID LAST DOSE GIVEN: DATE: TIME: NEXT DOSE DUE: DATE: TIME: Multi Vitamin Daily (Multivitamin) 1 Each Tablet 1 Tab PO DAILY LAST DOSE GIVEN: DATE: TIME: NEXT DOSE DUE: DATE: TIME: Mucinex Dm Er 600-30 Mg Tablet (Guaifenesin/Dextromethorphan) 1 Each Tab.er.12h 2 Tab PO BID LAST DOSE GIVEN: DATE: TIME: NEXT DOSE DUE: DATE: TIME: Allergies: Coded Allergies: Latex, Natural Rubber (Unverified Allergy, Intermediate, 11/29/16) bacitracin (Unverified Allergy, Intermediate, 11/29/16) VITALS Vital Signs Date Time Temp Pulse Resp B/P (MAP) Pulse Ox O2 Delivery O2 Flow Rate FiO2 02/14/18 05:51 97.6 76 20 95/61 (72) 100 Nasal Cannula 02/14/18 04:31 3.0 Labs Laboratory Tests Test 02/13/18 18:40 02/14/18 00:30 02/14/18 06:04 White Blood Count 9.8 x10^3/uL (4.0-11.0) 7.6 x10^3/uL (4.0-11.0) Red Blood Count 3.34 x10^6/uL (3.50-5.40) 3.16 x10^6/uL (3.50-5.40) Hemoglobin 10.7 g/dL (12.0-15.5) 10.2 g/dL (12.0-15.5) Hematocrit 31.9 % (36.0-47.0) 30.3 % (36.0-47.0) Mean Corpuscular Volume 96 fL (79-100) 96 fL (79-100) Mean Corpuscular Hemoglobin 32 pg (25-35) 32 pg (25-35) Mean Corpuscular Hemoglobin Concent 34 g/dL (31-37) 34 g/dL (31-37) Red Cell Distribution Width 14.2 % (11.5-14.5) 14.0 % (11.5-14.5) Platelet Count 287 x10^3/uL (140-400) 265 x10^3/uL (140-400) Neutrophils (%) (Auto) 76 % (31-73) 55 % (31-73) Lymphocytes (%) (Auto) 13 % (24-48) 32 % (24-48) Monocytes (%) (Auto) 10 % (0-9) 9 % (0-9) Eosinophils (%) (Auto) 2 % (0-3) 4 % (0-3) Basophils (%) (Auto) 0 % (0-3) 0 % (0-3) Neutrophils # (Auto) 7.4 x10^3uL (1.8-7.7) 4.2 x10^3uL (1.8-7.7) Lymphocytes # (Auto) 1.2 x10^3/uL (1.0-4.8) 2.4 x10^3/uL (1.0-4.8) Monocytes # (Auto) 0.9 x10^3/uL (0.0-1.1) 0.7 x10^3/uL (0.0-1.1) Eosinophils # (Auto) 0.2 x10^3/uL (0.0-0.7) 0.3 x10^3/uL (0.0-0.7) Basophils # (Auto) 0.0 x10^3/uL (0.0-0.2) 0.0 x10^3/uL (0.0-0.2) Erythrocyte Sedimentation Rate 55 (0-25) D-Dimer (Marilou) 0.25 mg/L (0.00-0.50) Sodium Level 139 mmol/L (136-145) 140 mmol/L (136-145) Potassium Level 4.2 mmol/L (3.5-5.1) 3.1 mmol/L (3.5-5.1) Chloride Level 99 mmol/L (98-107) 100 mmol/L (98-107) Carbon Dioxide Level 37 mmol/L (21-32) 40 mmol/L (21-32) Anion Gap 3 (6-14) 0 (6-14) Blood Urea Nitrogen 22 mg/dL (7-20) 16 mg/dL (7-20) Creatinine 1.2 mg/dL (0.6-1.0) 1.0 mg/dL (0.6-1.0) Estimated GFR (Cockcroft-Gault) 44.2 54.5 BUN/Creatinine Ratio 18 (6-20) Glucose Level 120 mg/dL (70-99) 135 mg/dL (70-99) Lactic Acid Level 0.7 mmol/L (0.4-2.0) Calcium Level 9.4 mg/dL (8.5-10.1) 9.0 mg/dL (8.5-10.1) Total Bilirubin 0.5 mg/dL (0.2-1.0) Aspartate Amino Transf (AST/SGOT) 17 U/L (15-37) Alanine Aminotransferase (ALT/SGPT) 16 U/L (14-59) Alkaline Phosphatase 90 U/L (46-116) MX-Ziz-H-Type Natriuretic Peptide 212 pg/mL (0-124) Total Protein 7.0 g/dL (6.4-8.2) Albumin 3.3 g/dL (3.4-5.0) Albumin/Globulin Ratio 0.9 (1.0-1.7) Urine Collection Type Unknown Urine Color Yellow Urine Clarity Clear Urine pH 7.0 Urine Specific [place] 1.015 Urine Protein Neg (NEG-TRACE) Urine Glucose (UA) Neg mg/dL (NEG) Urine Ketones (Stick) Neg mg/dL (NEG) Urine Blood Neg (NEG) Urine Nitrite Neg (NEG) Urine Bilirubin Neg (NEG) Urine Urobilinogen Dipstick 0.2 mg/dL (0.2 mg/dL) Urine Leukocyte Esterase Neg (NEG) Urine RBC 0 /HPF (0-2) Urine WBC Occ /HPF (0-4) Urine Squamous Epithelial Cells None /LPF Urine Bacteria 0 /HPF (0-FEW) Urine Opiates Screen Pos (NEG) Urine Methadone Screen Neg (NEG) Urine Barbiturates Neg (NEG) Urine Phencyclidine Screen Neg (NEG) Urine Amphetamine/Methamphetamine Pos (NEG) Urine Benzodiazepines Screen Pos (NEG) Urine Cocaine Screen Neg (NEG) Urine Cannabinoids Screen Neg (NEG) Urine Ethyl Alcohol Neg (NEG) SAUD BOWMAN Jr, MD 02/15/18 0618: CONSULT Assessment/Plan The patient was seen by Akilah Mensah APRN and I have reviewed her findings and plan and agree with above. Due to staffing constraints, we did not have an attending available on this day to see the patient. Saud Bowman Jr., AKILAH AZEVEDO APRN Feb 14, 2018 10:08 SAUD BOWMAN Jr, MD Feb 15, 2018 06:18
[2018-02-14] MEDS: CHOLECALCIFEROL (VITAMIN D3) 1,000 UNIT TABLET PO SCH ×2 (10:32→21:45)
[2018-02-14] MEDS: ALPRAZolam 0.5 MG TABLET PO SCH ×3 (10:32→22:04)
[2018-02-14] MEDS: POTASSIUM CHLORIDE 20 MEQ TABLET.ER. PO SCH ×2 (10:32→17:00)
[2018-02-14] MEDS: DOCUSATE SODIUM 100 MG CAPSULE PO SCH ×2 (10:33→21:45)
[2018-02-14] MEDS: ASPIRIN 81 MG TAB.CHEW PO SCH (10:33)
[2018-02-14] MEDS: BENZONATATE 100 MG CAPSULE. PO SCH ×3 (10:33→21:48)
[2018-02-14] MEDS: CALCIUM CARBONATE 500 MG TABLET PO SCH ×2 (10:33→21:48)
[2018-02-14 10:34] VITALS: BP 106/71
[2018-02-14] MEDS: CARVEDILOL 6.25 MG TABLET PO SCH ×2 (10:34→17:00)
[2018-02-14] MEDS: guaiFENesin DM 600/30MG 1 TAB TAB.ER.12H PO SCH ×2 (10:35→21:46)
[2018-02-14] MEDS: PANTOPRAZOLE 40 MG TABLET. PO SCH (10:35)
[2018-02-14] MEDS: GLUCOSAMINE/CHOND 500/400MG CAPSULE PO SCH ×2 (10:36→21:46)
[2018-02-14] MEDS: HEPARIN PF for SUB-Q USE 5,000 UNIT/0.5 ML VIAL. SQ SCH ×2 (10:37→22:00)
[2018-02-14] MEDS: HYDROcodone/APAP 7.5/325MG 1 TAB TABLET PO PRN ×2 (10:46→16:57)
[2018-02-14] MEDS ORDERED: POTASSIUM CHLORIDE 20 MEQ TABLET.ER. PO ONE (11:15)
[2018-02-14] MEDS: IV DEXTROSE 5 %-0.2 % NACL 1,000 ML IV SCH ×2 (11:25→23:32)
[2018-02-14 14:27] VITALS: BP 121/78
--- NOTE | 2018-02-14 14:44 | RAD ---
EXAM: Chest, 2 views. HISTORY: Shortness of breath COMPARISON: 03/15/2017 FINDINGS: Frontal and lateral views of the chest are obtained. There is suspected emphysema. There is blunting of the right costophrenic angle likely due to basilar pleural thickening or scarring. The heart is normal in size. There are few calcified granulomas. IMPRESSION: No acute pulmonary finding. Electronically signed by: Isabel Ritchie MD (02/14/2018 2:40 PM) [place] [id number]
[2018-02-14] MEDS: POLYETHYLENE GLYCOL 3350 17 GM PACKET. PO SCH (17:59)
[2018-02-14] MEDS ORDERED: TERI2.4P SQ (18:08)
[2018-02-14] MEDS ORDERED: vinpocetine (18:08)
[2018-02-14] MEDS ORDERED: VORT10TA PO (18:08)
[2018-02-14] MEDS ORDERED: UBID30CA9 PO (18:08)
[2018-02-14] MEDS ORDERED: prevagen (18:08)
[2018-02-14] MEDS ORDERED: LUTE6CAP3 PO (18:08)
[2018-02-14] MEDS ORDERED: RESV50CA PO (18:08)
[2018-02-14] MEDS ORDERED: UMEC1DIS IH (18:08)
[2018-02-14] MEDS ORDERED: CLOT10TR PO (18:32)
[2018-02-14] MEDS ORDERED: FLUC100T4 PO (18:32)
[2018-02-14] MEDS ORDERED: DESI25TA PO (18:32)
[2018-02-14 19:19] VITALS: BP 118/74
[2018-02-14] MEDS: HYDROcodone/APAP 5/325MG 1 TAB TABLET PO PRN (19:43)
[2018-02-14] MEDS ORDERED: traZODone 100 MG TABLET. PO SCH (21:00)
[2018-02-14] MEDS ORDERED: MELATONIN 3 MG TABLET PO SCH (21:00)
[2018-02-14] MEDS: MAGNESIUM HYDROXIDE 2,400 MG/30 ML ORAL.SUSP. PO SCH (21:00)
[2018-02-14] MEDS: MIRTAZAPINE 15 MG TABLET PO SCH (21:47)
[2018-02-14] MEDS: MONTELUKAST 10 MG TABLET. PO SCH (21:47)
[2018-02-14] MEDS: MULTIVITAMIN with MINERAL TABLET. PO SCH (21:48)
[2018-02-14] MEDS: DESIPRAMINE 25 MG PO SCH (21:49)
[2018-02-14] MEDS: ATORVASTATIN CALCIUM 10 MG TABLET. PO SCH (21:49)
[2018-02-14] MEDS: MELATONIN 3 MG TABLET PO SCH (21:49)
[2018-02-14] MEDS: TERIPARATIDE 20 MCG SQ SCH (21:51)
[2018-02-14 21:56] VITALS: BP 111/76
[2018-02-14] MEDS: CLOTRIMAZOLE 10 MG PO SCH (22:06)
--- NOTE | 2018-02-14 23:12 | PN ---
DATE: SUBJECTIVE: The patient admitted with hypotension, generalized weakness, and change in mental status. The patient is resting fairly comfortably. Blood pressure shows mild increase up to 106/71. She has been as low as in the office down in the systolic in the 70s and her diastolic in the 50s and 40s. The patient's pulse is regular in the 70s, respiratory rate stable. She is on oxygen continuously. She has been seen by Cardiology. Chest x-ray is still pending. LABORATORY DATA: Her labs have been as noted showing some slight anemia, elevated sed rate of 55. BUN and creatinine are basically stable. GFR decreased at 54. Blood sugar 135. BNP is slightly elevated at 212. Albumin is slightly low. UA was basically unremarkable. Toxicology shows amphetamines, benzos and opiates, which is what she has been prescribed. Her potassium was also low, put her on electrolyte replacement. Make further evaluation with potassium of 3.1. IMPRESSION: Hypotension, change of mental status, hypokalemia, chronic obstructive pulmonary disease, chronic use of oxygen, and mild protein malnutrition. PLAN: The patient will be continued to be monitored. IV fluids, adjust her medications. Cardiology consult, 2D echo, and so forth. CLARA SAXENA MD DR: GO/gerry JOB#: [id number] / [id number]
[2018-02-15] MEDS: HYDROcodone/APAP 5/325MG 1 TAB TABLET PO PRN ×3 (03:52→21:21)
[2018-02-15] MEDS: IPRATRPIUM/ALBUTEROL 0.5/2.5MG 3 ML NEBU. NEB SCH ×4 (05:30→22:24)
[2018-02-15 06:08] VITALS: BP 106/69
[2018-02-15] MEDS: LEVOTHYROXINE 75 MCG TABLET PO SCH (06:12)
[2018-02-15] MEDS: CLOTRIMAZOLE 10 MG PO SCH ×5 (06:13→21:28)
[2018-02-15] MEDS ORDERED: BUDESONIDE 0.5 MG/2 ML NEBU NEB SCH (08:00)
[2018-02-15 08:20] LABS: CALCIUM 10.2 mg/dL (8.5-10.1); CREATININE 0.7 mg/dL (0.6-1.0); GFR 82.3; POTASSIUM 4.7 mmol/L (3.5-5.1)
[2018-02-15] MEDS: ALPRAZolam 0.5 MG TABLET PO SCH ×3 (08:24→15:52)
[2018-02-15] MEDS: CALCIUM CARBONATE 500 MG TABLET PO SCH ×2 (08:25→21:26)
[2018-02-15] MEDS: DOCUSATE SODIUM 100 MG CAPSULE PO SCH ×2 (08:26→21:24)
[2018-02-15] MEDS: POLYETHYLENE GLYCOL 3350 17 GM PACKET. PO SCH ×2 (08:26→12:28)
[2018-02-15] MEDS: POTASSIUM CHLORIDE 20 MEQ TABLET.ER. PO SCH ×2 (08:27→17:46)
[2018-02-15] MEDS: OMEGA-3 FATTY ACIDS/FISH OIL 1,000 MG CAPSULE. PO SCH (08:27)
[2018-02-15] MEDS: PANTOPRAZOLE 40 MG TABLET. PO SCH (08:27)
[2018-02-15] MEDS: CHOLECALCIFEROL (VITAMIN D3) 1,000 UNIT TABLET PO SCH ×2 (08:27→21:27)
[2018-02-15] MEDS: ASPIRIN 81 MG TAB.CHEW PO SCH (08:28)
[2018-02-15] MEDS: BENZONATATE 100 MG CAPSULE. PO SCH ×2 (08:28→13:51)
[2018-02-15] MEDS: MULTIVITAMIN with MINERAL TABLET. PO SCH ×2 (08:28→21:27)
[2018-02-15] MEDS: DESIPRAMINE 25 MG PO SCH (08:29)
[2018-02-15] MEDS: GLUCOSAMINE/CHOND 500/400MG CAPSULE PO SCH ×2 (08:31→21:25)
[2018-02-15] MEDS: HEPARIN PF for SUB-Q USE 5,000 UNIT/0.5 ML VIAL. SQ SCH ×2 (08:34→21:44)
[2018-02-15] MEDS: UBIDECARENONE 50 MG CAPSULE. PO SCH (08:48)
[2018-02-15] MEDS: guaiFENesin DM 600/30MG 1 TAB TAB.ER.12H PO SCH ×2 (08:48→21:26)
[2018-02-15] MEDS ORDERED: RESVERATROL 50 MG PO SCH (09:00)
[2018-02-15] MEDS ORDERED: NON FORMULARY ITEM (Umeclidinium Brm/Vilanterol Tr (Anoro Ellipta 62.5-25 Mcg Inh) 1 EACH) IH SCH (09:00)
[2018-02-15] MEDS ORDERED: LUTEIN 6 MG PO SCH (09:00)
[2018-02-15] MEDS ORDERED: NON FORMULARY ITEM (Vortioxetine Hydrobromide (Trintellix) 10 MG) PO SCH (09:00)
[2018-02-15] MEDS ORDERED: NON FORMULARY ITEM (Ubidecarenone (Coq-10) 30 MG) PO SCH (09:00)
[2018-02-15] MEDS ORDERED: FLUCONAZOLE 100 MG PO SCH (09:00)
[2018-02-15] MEDS: FUROSEMIDE 20 MG TABLET PO SCH (09:00)
--- NOTE | 2018-02-15 09:13 | CARD ---
MR#: [id number] Date of Study: 02/14/2018 Ordering Physician: CLARA SAXENA, Referring Physician: CLARA SAXENA, Tech: ASHER Wright APPROVED REPORT EXAM: Two-dimensional and M-mode echocardiogram with Doppler and color Doppler. Other Information Quality : Technically Difficult Technically limited study due to poor windows. INDICATION Dyspnea Fatigue Weakness 2D DIMENSIONS Left Atrium(2D)3.5 (1.6-4.0cm)IVSd0.6 (0.7-1.1cm) Aortic Root(2D)2.4 (2.0-3.7cm)LVDd5.0 (3.9-5.9cm) LVOT Diameter2.0 (1.8-2.4cm)PWd1.0 (0.7-1.1cm) LVDs2.5 (2.5-4.0cm)FS (%) 33.0 % SV94.7 mlLVEF(%)67.0 (>50%) Aortic Valve AoV Peak Henry.165.5cm/Michael Peak GR.11.0mmHg LVOT Peak Henry.111.5cm/sAVA (VMAX)2.01cm2 Mitral Valve MV E Vbgxkste35.3cm/sMV DECEL [id number] MV A Octnrxuj23.6cm/sE/A Ratio1.3 Tricuspid Valve RAP [id number] LEFT VENTRICLE The left ventricle is normal size. There is normal left ventricular wall thickness. The left ventricu lar systolic function is normal and the ejection fraction is within normal range. The Ejection Fracti on is 65-70%. There is normal LV segmental wall motion. RIGHT VENTRICLE The right ventricle is normal size. There is normal right ventricular wall thickness. The right ventr icular systolic function is normal. ATRIA The left atrium size is normal. The right atrium size is normal. The interatrial septum is intact wit h no evidence for an atrial septal defect or patent foramen ovale as noted on 2-D or Doppler imaging. AORTIC VALVE The aortic valve is not well visualized. The aortic valve is trileaflet. Doppler and Color Flow revea led trace aortic regurgitation. There is no significant aortic valvular stenosis. MITRAL VALVE There is no evidence of mitral valve prolapse. There is no mitral valve stenosis. Doppler and Color-f low revealed trace mitral regurgitation. TRICUSPID VALVE Doppler and Color Flow revealed trace tricuspid regurgitation. There is no tricuspid valve stenosis. PULMONIC VALVE The pulmonic valve is not well visualized. Doppler and Color Flow revealed no pulmonic valvular regur gitation. There is no pulmonic valvular stenosis. GREAT VESSELS The aortic root is mildly enlarged (4.2cm). The IVC is normal in size and collapses >50% with inspira tion. PERICARDIAL EFFUSION There is no pleural effusion. There is no evidence of significant pericardial effusion. Critical Notification Critical Value: No <Conclusion> The left ventricular systolic function is normal and the ejection fraction is within normal range. The Ejection Fraction is 65-70%. The left atrium size is normal. The aortic root is mildly enlarged (4.2cm). There is no evidence of significant pericardial effusion. Signed by : TESSA WASHINGTON, Electronically Approved : 02/15/2018 09:12:27
--- NOTE | 2018-02-15 09:33 | PDOC ---
SUBJECTIVE Subjective: She is still tired. She has not been out of bed. She is on oxygen. She appears to have a pain in her neck Exam Constitutional: Denies fever or chills Eyes: Denies change in visual acuity HENT: Denies nasal congestion or sore throat Respiratory: Denies cough or shortness of breath Cardiovascular: Denies chest pain or edema GI: Denies abdominal pain, nausea, vomiting, bloody stools or diarrhea : Denies dysuria Musculoskeletal: Denies back pain or joint pain Integument: Denies rash Neurologic: Denies headache, focal weakness or sensory changes Endocrine: Denies polyuria or polydipsia Lymphatic: Denies swollen glands Psychiatric: Denies depression or anxiety OBJECTIVE Vital Signs Vital Signs Date Time Temp Pulse Resp B/P (MAP) Pulse Ox O2 Delivery O2 Flow Rate FiO2 02/15/18 06:08 98.8 97 18 106/69 (81) 97 Nasal Cannula 2.0 Physical Exam Constitutional: Well developed, well nourished, no acute distress, non-toxic appearance. HENT: Normocephalic, atraumatic, bilateral external ears normal, oropharynx moist, no oral exudates, nose normal. Eyes: TABITHA, EOMI, conjunctiva normal, no discharge. Neck: Normal range of motion, no tenderness, supple, no stridor. Cardiovascular: JVP not elevated. No carotid bruit. Nor precordial pulsations or heaves. S1 N,S2N. No murmurs. No rubs or clicks. Thorax and Lungs: Nrrmal respiration. Normal chest expansion. Normal to percuss. Decreased breath sounds. few scattered crackles. No wheeze. Abdomen: Bowel sounds normal, soft, no tenderness, no masses, no pulsatile masses. Skin: Warm, dry, no erythema, no rash. Back: No tenderness, no CVA tenderness. Extremities: Intact distal pulses, no tenderness, no cyanosis, no clubbing, ROM intact, no edema. Neurologic: Alert and oriented X 3, normal motor function, normal sensory function, no focal deficits noted. Psychologic: Affect normal, judgement normal, mood normal. Lab Laboratory Tests Test 02/15/18 08:04 Sodium Level 137 mmol/L (136-145) Potassium Level 4.7 mmol/L (3.5-5.1) Chloride Level 98 mmol/L (98-107) Carbon Dioxide Level 37 mmol/L (21-32) H Anion Gap 2 (6-14) L Blood Urea Nitrogen 9 mg/dL (7-20) Creatinine 0.7 mg/dL (0.6-1.0) Estimated GFR (Cockcroft-Gault) 82.3 Glucose Level 128 mg/dL (70-99) H Calcium Level 10.2 mg/dL (8.5-10.1) H MEDICATIONS Medications Current Medications Medications (Trade) Dose Ordered Sig/Ankit Start Time Stop Time Status Last Admin Dose Admin Acetaminophen/ Hydrocodone Bitart (Lortab 5/325) 1 tab PRN Q6HRS PRN 02/14/18 18:30 02/15/18 03:52 1 TAB Acetaminophen/ Hydrocodone Bitart (Lortab 7.5/325) 1 tab PRN Q6HRS PRN 02/13/18 18:15 02/14/18 17:40 DC 02/14/18 16:57 1 TAB Albuterol Sulfate (Ventolin) 2.5 mg Q6HRS 02/15/18 12:00 Cancel Albuterol/ Ipratropium (Duoneb) 3 ml RTQID 02/13/18 20:00 02/15/18 05:30 3 ML Alprazolam (Xanax) 1 mg TID 02/13/18 21:00 02/15/18 08:24 1 MG Aspirin (Children'S Aspirin) 81 mg [id number] 02/14/18 08:00 02/15/18 08:28 81 MG Atorvastatin Calcium (Lipitor) 10 mg QHS 02/14/18 21:00 02/14/18 21:49 10 MG Benzonatate (Tessalon Perle) 200 mg [id number] 02/13/18 21:00 02/15/18 08:28 200 MG Budesonide (Pulmicort) 0.5 mg RTBID 02/15/18 08:00 Calcium Carbonate/ Glycine (Oscal) 1,000 mg BID 02/13/18 21:00 02/15/18 08:25 1,000 MG Carvedilol (Coreg) 6.25 mg [id number] 02/14/18 08:00 02/14/18 17:49 DC 02/14/18 10:34 6.25 MG Coenzyme Q10 (Coenzyme Q10) 50 mg DAILY 02/15/18 09:00 02/15/18 08:48 50 MG Dextrose/Sodium Chloride 1,000 ml @ 75 mls/hr [id number] 02/13/18 21:00 02/14/18 23:32 75 MLS/HR Docusate Sodium (Colace) 100 mg BID 02/13/18 21:00 02/15/18 08:26 100 MG Fish Oil (Fish Oil) 2,000 mg DAILY 02/15/18 09:00 02/15/18 08:27 2,000 MG Furosemide (Lasix) 20 mg DAILY 02/15/18 09:00 Glucosamine/ Chondroitin (Glucosamine-Chondroitin 500/400mg) 1 cap BID 02/13/18 21:00 02/15/18 08:31 1 CAP Guaifenesin (MUCINEX ER with DM) 1 tab BID 02/13/18 21:00 02/15/18 08:48 1 TAB Guaifenesin (Mucinex Er) 1,200 mg BID 02/14/18 21:00 02/15/18 08:26 1,200 MG Heparin Sodium (Porcine) (Heparin Sq) 5,000 unit BID 02/13/18 21:00 02/15/18 08:34 5,000 UNIT Hydralazine HCl (Apresoline) 25 mg TID 02/13/18 21:00 02/14/18 17:40 DC 02/14/18 15:08 25 MG Hydrochlorothiazide (Hydrodiuril) 25 mg DAILY 02/14/18 09:00 Info (Non-Icu Electrolyte Protocol) 1 ea CONT PRN PRN 02/14/18 09:15 Levothyroxine Sodium (Synthroid) 75 mcg DAILY07 02/15/18 07:00 02/15/18 06:12 75 MCG Losartan Potassium (Cozaar) 100 mg DAILY 02/14/18 09:00 02/14/18 17:49 DC Magnesium Hydroxide (Milk Of Magnesia) 2,400 mg QHS 02/14/18 21:00 Melatonin 9 mg QHS 02/14/18 21:00 02/14/18 21:49 9 MG Mirtazapine (Remeron) 15 mg QHS 02/13/18 21:00 02/14/18 21:47 15 MG Montelukast Sodium (Singulair) 10 mg QHS 02/14/18 21:00 02/14/18 21:47 10 MG Multivitamins/ Calcium (Thera-M Plus) 1 tab BID 02/14/18 21:00 02/15/18 08:28 1 TAB Non-Formulary Medication (Clotrimazole ) 1 tab 5XDAY 02/14/18 22:00 02/15/18 06:13 1 TAB Non-Formulary Medication (Dextroamphetamine/ Amphetamine (Adderall Xr 30 Mg Capsule)) 30 mg DAILY 02/14/18 09:00 02/14/18 10:35 30 MG Non-Formulary Medication (Fluconazole ) 1 tab DAILY 02/15/18 09:00 02/15/18 09:02 DC 02/15/18 08:30 1 TAB Non-Formulary Medication (Fluticasone/ Vilanterol (Breo Ellipta 200-25 Mcg INH)) 1 puff DAILY 02/14/18 09:00 02/14/18 09:00 DC Non-Formulary Medication (Lutein ) 6 mg DAILY 02/15/18 09:00 02/15/18 09:00 DC Non-Formulary Medication (Quetiapine Fumarate (Seroquel Xr)) 400 mg HS 02/14/18 21:00 02/15/18 07:34 DC 02/14/18 21:50 400 MG Non-Formulary Medication (Resveratrol ) 50 mg DAILY 02/15/18 09:00 02/15/18 09:00 DC Non-Formulary Medication (Roflumilast (Daliresp)) 500 mcg HS 02/13/18 21:00 02/14/18 17:49 UNV Non-Formulary Medication (Teriparatide (Forteo)) 20 mcg QHS 02/14/18 21:00 02/14/18 21:51 20 MCG Non-Formulary Medication (Ubidecarenone (Coq-10)) 30 mg DAILY 02/15/18 09:00 UNV Non-Formulary Medication (Umeclidinium Brm/Vilanterol Tr (Anoro Ellipta 62.5-25 Mcg Inh)) 1 each DAILY 02/15/18 09:00 UNV Non-Formulary Medication (Vortioxetine Hydrobromide (Trintellix)) 10 mg DAILY 02/15/18 09:00 UNV Pantoprazole Sodium (Protonix) 40 mg DAILYAC 02/14/18 07:30 02/15/18 08:27 40 MG Paroxetine HCl (Paxil) 50 mg DAILY 02/14/18 09:00 02/14/18 17:49 DC 02/14/18 10:35 50 MG Polyethylene Glycol (miraLAX) 17 gm DAILYWLUN 02/15/18 12:00 Potassium Chloride (Klor-Con) 40 meq 1X ONCE 02/14/18 11:15 02/14/18 11:16 DC 02/14/18 11:25 40 MEQ Prochlorperazine Maleate (Compazine) 10 mg PRN BID PRN 02/13/18 21:30 Trazodone HCl (Desyrel) 200 mg QHS 02/14/18 21:00 02/14/18 21:49 200 MG Vitamin D (Vitamin D3) 1,000 unit BID 02/13/18 21:00 02/15/18 08:27 1,000 UNIT PLAN Plan Hypotension with near syncope patient presented with a blood pressures, and acute renal failure which improved. The most likely cause of this was her antihypertensives, combined with the nothing by mouth that she was on for her procedure last week. We will continue to hold her antihypertensives. The left ventricular systolic function is normal Thoracic aortic aneurysm: Her ascending aorta measured 4.2 cm today, compared to 3 years ago. This would be consistent with its normal progression. I would recommend that the patient get a beta sean as a first-line antihypertensive therapy her blood pressures better. Hypertension: Continue to hold her Hyzaar and antihypertensives. Chronic respiratory failure: The patient is on oxygen at home at 2 L. Acute kidney injury: Has improved with IV fluids. Hypercholesteremia: On a statin. Hypothyroidism on medication. Fatigue: Recommend OT and PT assessment The above was dictated using a voice recognition software in a noisy environment and as such may contain lease out man errors TESSA WASHINGTON MD Feb 15, 2018 09:33
[2018-02-15 11:10] VITALS: BP 97/64
[2018-02-15] MEDS ORDERED: ALBUTEROL SULFATE 2.5 MG/3 ML NEBU. NEB SCH (12:00)
[2018-02-15] MEDS: cycloSPORINE 0.05% OPTH 1 DROP DROPERETTE OU SCH ×2 (12:28→14:06)
[2018-02-15] MEDS ORDERED: DESIPRAMINE HCL 25 MG TABLET PO SCH (13:00)
[2018-02-15] MEDS: IV DEXTROSE 5 %-0.2 % NACL 1,000 ML IV SCH (14:06)
[2018-02-15] MEDS: AMPHETAMINE PO SCH (14:14)
[2018-02-15] MEDS: DEXTROAMPHETAMINE PO SCH (14:14)
[2018-02-15] MEDS: ANORO ELLIPTA INHALER IH SCH (14:15)
--- NOTE | 2018-02-15 15:32 | NUR ---
Pts called to talk with RN. asking about patients medications. RN asked him if he had the adderall to bring in, started yelling, "What is it going to take to get it through your heads!" RN replied, "You are not going to talk to me like that." Pt responded, "Im coming up there!" RN replied, "If you come up here yelling and acting like you did yesterday security will be called on you, this behavior is not tolerated." began apologizing stating his hearing was bad and he couldn't hear me so that is why he started yelling. apologized many times. When patient came to unit he was calm and cooperative.
[2018-02-15 15:54] VITALS: BP 122/78
--- NOTE | 2018-02-15 16:36 | NUR ---
Patient has been very drowsy today r/t to patient not getting her scheduled Adderall @ 0900. Patients brought in Adderall today and administered at 1340. Patient's is at the bed side and patient is resting in bed at this time.
[2018-02-15 20:25] VITALS: BP 117/82
[2018-02-15] MEDS: MAGNESIUM HYDROXIDE 2,400 MG/30 ML ORAL.SUSP. PO SCH (21:00)
[2018-02-15] MEDS ORDERED: QUEtiapine 100 MG TABLET. PO SCH (21:00)
[2018-02-15] MEDS ORDERED: traZODone 100 MG TABLET. PO SCH (21:00)
[2018-02-15] MEDS: RESVERATROL PLUS PO SCH (21:17)
[2018-02-15] MEDS: [UNRECOGNIZED DRUG - OTHER] PO SCH (21:17)
[2018-02-15] MEDS: MELATONIN 3 MG TABLET PO SCH (21:17)
[2018-02-15] MEDS: [UNRECOGNIZED DRUG - OTHER] PO SCH (21:22)
[2018-02-15] MEDS: VINPOCETINE PO SCH (21:24)
[2018-02-15] MEDS: MIRTAZAPINE 15 MG TABLET PO SCH (21:26)
[2018-02-15] MEDS: ATORVASTATIN CALCIUM 10 MG TABLET. PO SCH (21:26)
[2018-02-15] MEDS: MONTELUKAST 10 MG TABLET. PO SCH (21:27)
[2018-02-15] MEDS: TERIPARATIDE 20 MCG SQ SCH (21:38)
[2018-02-15 23:10] VITALS: BP 137/80
[2018-02-15] MEDS ORDERED: BUTALB/APAP/CAFEIN 50/325/40MG TABLET. PO PRN (23:30)
--- NOTE | 2018-02-15 23:30 | NUR ---
Pt c/o of headache. Pt received Lortab at 2119, with no relief of headache. Dr Gaona was notified, orders obtained for Fioricet 1 tab Q4HRS prn headaches. Pt was medicated per orders.
--- NOTE | 2018-02-16 01:00 | NUR ---
Pt states headache has resolved.
[2018-02-16] MEDS: IV DEXTROSE 5 %-0.2 % NACL 1,000 ML IV SCH ×2 (03:14→15:40)
[2018-02-16] MEDS: IPRATRPIUM/ALBUTEROL 0.5/2.5MG 3 ML NEBU. NEB SCH ×3 (05:26→16:10)
[2018-02-16 05:34] VITALS: BP 134/79
[2018-02-16] MEDS: CLOTRIMAZOLE 10 MG PO SCH ×3 (06:20→14:00)
[2018-02-16 06:48] LABS: BASO % 0 % (0-3); EOS # 0.4 x10^3/uL (0.0-0.7); EOS % 5 % (0-3); HEMATOCRIT 29.4 % (36.0-47.0); HEMOGLOBIN 9.9 g/dL (12.0-15.5); LYMPH # 1.9 x10^3/uL (1.0-4.8); LYMPH % 24 % (24-48); MEAN CORPUSCULAR HEMOGLOBIN 32 pg (25-35); MEAN CORPUSCULAR HGB CONC 34 g/dL (31-37); MEAN CORPUSCULAR VOLUME 96 fL (79-100); MONO # 0.7 x10^3/uL (0.0-1.1); MONO % 9 % (0-9); NEUT # 4.9 x10^3uL (1.8-7.7); NEUT % 62 % (31-73); PLATELET COUNT 261 x10^3/uL (140-400); RED BLOOD COUNT 3.06 x10^6/uL (3.50-5.40); RED CELL DISTRIBUTION WIDTH 13.9 % (11.5-14.5); WHITE BLOOD COUNT 7.8 x10^3/uL (4.0-11.0)
[2018-02-16 07:05] LABS: ALBUMIN 2.9 g/dL (3.4-5.0); ALBUMIN/GLOBULIN RATIO 0.8 (1.0-1.7); CALCIUM 10.4 mg/dL (8.5-10.1); CREATININE 0.7 mg/dL (0.6-1.0); GFR 82.3; POTASSIUM 4.6 mmol/L (3.5-5.1); TOTAL BILIRUBIN 0.3 mg/dL (0.2-1.0); TOTAL PROTEIN 6.4 g/dL (6.4-8.2)
[2018-02-16] MEDS: POTASSIUM CHLORIDE 20 MEQ TABLET.ER. PO SCH ×2 (08:00→16:26)
[2018-02-16] MEDS: POLYETHYLENE GLYCOL 3350 17 GM PACKET. PO SCH ×2 (08:21→11:45)
[2018-02-16] MEDS: ALPRAZolam 0.5 MG TABLET PO SCH ×2 (08:22→13:24)
[2018-02-16] MEDS: HEPARIN PF for SUB-Q USE 5,000 UNIT/0.5 ML VIAL. SQ SCH (08:22)
[2018-02-16] MEDS: CALCIUM CARBONATE 500 MG TABLET PO SCH (08:23)
[2018-02-16] MEDS: MULTIVITAMIN with MINERAL TABLET. PO SCH (08:23)
[2018-02-16] MEDS: guaiFENesin DM 600/30MG 1 TAB TAB.ER.12H PO SCH (08:23)
[2018-02-16] MEDS: cycloSPORINE 0.05% OPTH 1 DROP DROPERETTE OU SCH ×2 (08:23→15:40)
[2018-02-16] MEDS: PANTOPRAZOLE 40 MG TABLET. PO SCH (08:23)
[2018-02-16] MEDS: DOCUSATE SODIUM 100 MG CAPSULE PO SCH (08:23)
[2018-02-16] MEDS: LEVOTHYROXINE 75 MCG TABLET PO SCH (08:23)
[2018-02-16] MEDS: CHOLECALCIFEROL (VITAMIN D3) 1,000 UNIT TABLET PO SCH (08:24)
[2018-02-16] MEDS: ASPIRIN 81 MG TAB.CHEW PO SCH (08:24)
[2018-02-16] MEDS: [UNRECOGNIZED DRUG - OTHER] PO SCH (08:29)
[2018-02-16] MEDS: RESVERATROL PLUS PO SCH (08:29)
[2018-02-16] MEDS: VINPOCETINE PO SCH (08:29)
[2018-02-16] MEDS: [UNRECOGNIZED DRUG - OTHER] PO SCH (08:29)
[2018-02-16] MEDS: AMPHETAMINE PO SCH (08:30)
[2018-02-16] MEDS: DEXTROAMPHETAMINE PO SCH (08:30)
[2018-02-16] MEDS: GLUCOSAMINE/CHOND 500/400MG CAPSULE PO SCH (08:31)
[2018-02-16] MEDS: UBIDECARENONE 50 MG CAPSULE. PO SCH (08:31)
[2018-02-16] MEDS: ANORO ELLIPTA INHALER IH SCH (08:31)
[2018-02-16] MEDS: OMEGA-3 FATTY ACIDS/FISH OIL 1,000 MG CAPSULE. PO SCH (09:00)
[2018-02-16] MEDS ORDERED: DESIPRAMINE HCL 25 MG TABLET PO SCH ×2 (09:00→13:00)
[2018-02-16] MEDS: hydroCHLOROthiazide 25 MG TABLET PO SCH (09:00)
[2018-02-16] MEDS: FUROSEMIDE 20 MG TABLET PO SCH (09:00)
--- NOTE | 2018-02-16 09:54 | NUR ---
Pt pleasant and cooperative. Denies pain. Helped pt bedside commode.
--- NOTE | 2018-02-16 10:01 | PDOC ---
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 The left ventricular systolic function is normal Thoracic aortic aneurysm: Her ascending aorta measured 4.2 cm, compared to 3 years ago. This would be consistent with its normal progression. Continue beta sean Chronic respiratory failure: The patient is on oxygen at home at 2 L. Acute kidney injury: Resolved GFR >80 Hypercholesteremia: On a statin. Subjective She gets winded with activity but feels it is her baseline. Her legs are weak with standing and she worked with PT yesterday. She denies any chest pain or palpitations. Objective Vital Signs Date Time Temp Pulse Resp B/P (MAP) Pulse Ox O2 Delivery O2 Flow Rate FiO2 02/16/18 08:00 Nasal Cannula 2.0 02/16/18 05:34 98.4 80 24 134/79 (97) 97 Intake and Output 02/16/18 07:00 Intake Total 1300 ml Balance 1300 ml Intake Oral 300 ml IV Total 1000 ml # Voids 3 # Bowel Movements 2 Abdomen: Normal bowel sounds, Soft, No tenderness Heart: Regular rate, Normal S1, Normal S2, No murmurs Extremities: No edema, Normal pulses General: Alert, Oriented X3, Cooperative HEENT: EOMI, Mucous membr. moist/pink Lungs: Clear to auscultation Skin: No rashes, No breakdown Review of Relevant I have reviewed the following items sharri (where applicable) has been applied. Labs Laboratory Tests Test 02/15/18 08:04 02/16/18 06:24 Sodium Level 137 mmol/L (136-145) 139 mmol/L (136-145) Potassium Level 4.7 mmol/L (3.5-5.1) 4.6 mmol/L (3.5-5.1) Chloride Level 98 mmol/L (98-107) 101 mmol/L (98-107) Carbon Dioxide Level 37 mmol/L (21-32) 38 mmol/L (21-32) Anion Gap 2 (6-14) 0 (6-14) Blood Urea Nitrogen 9 mg/dL (7-20) 10 mg/dL (7-20) Creatinine 0.7 mg/dL (0.6-1.0) 0.7 mg/dL (0.6-1.0) Estimated GFR (Cockcroft-Gault) 82.3 82.3 Glucose Level 128 mg/dL (70-99) 113 mg/dL (70-99) Calcium Level 10.2 mg/dL (8.5-10.1) 10.4 mg/dL (8.5-10.1) White Blood Count 7.8 x10^3/uL (4.0-11.0) Red Blood Count 3.06 x10^6/uL (3.50-5.40) Hemoglobin 9.9 g/dL (12.0-15.5) Hematocrit 29.4 % (36.0-47.0) Mean Corpuscular Volume 96 fL (79-100) Mean Corpuscular Hemoglobin 32 pg (25-35) Mean Corpuscular Hemoglobin Concent 34 g/dL (31-37) Red Cell Distribution Width 13.9 % (11.5-14.5) Platelet Count 261 x10^3/uL (140-400) Neutrophils (%) (Auto) 62 % (31-73) Lymphocytes (%) (Auto) 24 % (24-48) Monocytes (%) (Auto) 9 % (0-9) Eosinophils (%) (Auto) 5 % (0-3) Basophils (%) (Auto) 0 % (0-3) Neutrophils # (Auto) 4.9 x10^3uL (1.8-7.7) Lymphocytes # (Auto) 1.9 x10^3/uL (1.0-4.8) Monocytes # (Auto) 0.7 x10^3/uL (0.0-1.1) Eosinophils # (Auto) 0.4 x10^3/uL (0.0-0.7) Basophils # (Auto) 0.0 x10^3/uL (0.0-0.2) BUN/Creatinine Ratio 14 (6-20) Total Bilirubin 0.3 mg/dL (0.2-1.0) Aspartate Amino Transf (AST/SGOT) 15 U/L (15-37) Alanine Aminotransferase (ALT/SGPT) 15 U/L (14-59) Alkaline Phosphatase 88 U/L (46-116) Total Protein 6.4 g/dL (6.4-8.2) Albumin 2.9 g/dL (3.4-5.0) Albumin/Globulin Ratio 0.8 (1.0-1.7) Medications Current Medications Albuterol Sulfate (Ventolin) 2.5 mg PRN Q4HRS PRN NEB SHORTNESS OF BREATH; Start 02/13/18 at 18:15 Calcium Carbonate/ Glycine (Oscal) 1,000 mg BID PO Last administered on at 08:23; Start 02/13/18 at 21:00 Vitamin D (Vitamin D3) 1,000 unit BID PO Last administered on 02/16/18at 08:24; Start 02/13/18 at 21:00 Guaifenesin (MUCINEX ER with DM) 1 tab BID PO Last administered on 02/16/18at 08 :23; Start 02/13/18 at 21:00 Acetaminophen/ Hydrocodone Bitart (Lortab 7.5/325) 1 tab PRN Q6HRS PRN PO PAIN Last administered on 02/14/18at 16:57; Start 02/13/18 at 18:15; Stop 02/14/18 at 17:40; Status DC Albuterol/ Ipratropium (Duoneb) 3 ml RTQID NEB ; Start 02/13/18 at 20:00; Stop 02/13/18 at 21:00; Status DC Alprazolam (Xanax) 1 mg TID PO Last administered on 02/16/18at 08:22; Start 07/23 at 21:00 Aspirin (Children'S Aspirin) 81 mg DAILYWBKFT PO Last administered on at 08:24; Start 02/14/18 at 08:00 Atorvastatin Calcium (Lipitor) 10 mg QHS PO Last administered on 02/15/18at 21: 26; Start 02/14/18 at 21:00 Benzonatate (Tessalon Perle) 200 mg QIH998 PO Last administered on 02/15/18at 08 :28; Start 02/13/18 at 21:00; Stop 02/15/18 at 14:47; Status DC Carvedilol (Coreg) 12.5 mg BIDWMEALS PO ; Start 02/14/18 at 08:00; Stop at 08:00; Status DC Non-Formulary Medication (Dextroamphetamine/ Amphetamine (Adderall Xr 30 Mg Capsule)) 30 mg DAILY PO Last administered on 02/14/18at 10:35; Start 02/14/18 at 09:00; Stop 02/15/18 at 14:08; Status DC Docusate Sodium (Colace) 100 mg BID PO Last administered on 02/16/18at 08:23; Start 02/13/18 at 21:00 Non-Formulary Medication (Fluticasone/ Vilanterol (Breo Ellipta 200-25 Mcg INH) ) 1 puff DAILY IH ; Start 02/14/18 at 09:00; Stop 02/14/18 at 09:00; Status DC Glucosamine/ Chondroitin (Glucosamine-Chondroitin 500/400mg) 1 cap BID PO Last administered on 02/16/18at 08:31; Start 02/13/18 at 21:00 Hydralazine HCl (Apresoline) 25 mg TID PO Last administered on 02/14/18at 15:08 ; Start 02/13/18 at 21:00; Stop 02/14/18 at 17:40; Status DC Levothyroxine Sodium (Synthroid) 50 mcg DAILY07 PO Last administered on at 10:34; Start 02/14/18 at 07:00; Stop 02/14/18 at 17:49; Status DC Losartan Potassium (Cozaar) 100 mg DAILY PO ; Start 02/14/18 at 09:00; Stop 08/22 at 17:49; Status DC Magnesium Hydroxide (Milk Of Magnesia) 2,400 mg QHS PO ; Start 02/14/18 at 21:00 Melatonin 3 mg QHS PO ; Start 02/14/18 at 21:00; Stop 02/14/18 at 21:00; Status DC Mirtazapine (Remeron) 15 mg QHS PO Last administered on 02/15/18at 21:26; Start 02/13/18 at 21:00 Montelukast Sodium (Singulair) 10 mg QHS PO Last administered on 02/15/18at 21: 27; Start 02/14/18 at 21:00 Multivitamins/ Calcium (Thera-M Plus) 1 tab DAILY PO Last administered on at 10:33; Start 02/14/18 at 09:00; Stop 02/14/18 at 17:49; Status DC Pantoprazole Sodium (Protonix) 40 mg DAILYAC PO Last administered on 02/16/18at 08:23; Start 02/14/18 at 07:30 Paroxetine HCl (Paxil) 50 mg DAILY PO Last administered on 02/14/18at 10:35; Start 02/14/18 at 09:00; Stop 02/14/18 at 17:49; Status DC Potassium Chloride (Klor-Con) 40 meq BIDWMEALS PO Last administered on at 17:46; Start 02/14/18 at 08:00 Prochlorperazine Maleate (Compazine) 10 mg PRN BID PRN PO NAUSEA/VOMITING; Start 02/13/18 at 21:30 Non-Formulary Medication (Quetiapine Fumarate (Seroquel Xr)) 200 mg HS PO Last administered on 02/13/18at 21:00; Start 02/13/18 at 21:00; Stop 02/14/18 at 17:49 ; Status DC Non-Formulary Medication (Roflumilast (Daliresp)) 500 mcg HS PO ; Start at 21:00; Stop 02/14/18 at 17:49; Status UNV Dextrose/Sodium Chloride 1,000 ml @ 75 mls/hr [id number] IV Last administered on 02/16/18at 03:14; Start 02/13/18 at 21:00 Heparin Sodium (Porcine) (Heparin Sq) 5,000 unit BID SQ Last administered on at 08:22; Start 02/13/18 at 21:00 Albuterol/ Ipratropium (Duoneb) 3 ml RTQID NEB Last administered on 02/16/18at 05:26; Start 02/13/18 at 20:00 Hydrochlorothiazide (Hydrodiuril) 25 mg DAILY PO ; Start 02/14/18 at 09:00 Carvedilol (Coreg) 6.25 mg BIDWMEALS PO Last administered on 02/14/18at 10:34; Start 02/14/18 at 08:00; Stop 02/14/18 at 17:49; Status DC Info (Non-Icu Electrolyte Protocol) 1 ea CONT PRN PRN MC PER PROTOCOL; Start at 09:15 Potassium Chloride (Klor-Con) 40 meq 1X ONCE PO Last administered on 11:25; Start 02/14/18 at 11:15; Stop 02/14/18 at 11:16; Status DC Acetaminophen/ Hydrocodone Bitart (Lortab 5/325) 1 tab PRN Q6HRS PRN PO PAIN Last administered on 02/15/18 21:21; Start 02/14/18 at 18:30 Polyethylene Glycol (miraLAX) 34 gm DAILY PO Last administered on 02/16/18 08: 21; Start 02/14/18 at 18:00 Polyethylene Glycol (miraLAX) 17 gm DAILYWLUN PO Last administered on 12:28; Start 02/15/18 at 12:00 Levothyroxine Sodium (Synthroid) 75 mcg DAILY07 PO Last administered on 08:23; Start 02/15/18 at 07:00 Melatonin 9 mg QHS PO Last administered on 02/15/18 21:17; Start 02/14/18 at 21:00 Multivitamins/ Calcium (Thera-M Plus) 1 tab BID PO Last administered on 08:23; Start 02/14/18 at 21:00 Non-Formulary Medication (Quetiapine Fumarate (Seroquel Xr)) 400 mg HS PO Last administered on 02/14/18 21:50; Start 02/14/18 at 21:00; Stop 02/15/18 at 07:34 ; Status DC Trazodone HCl (Desyrel) 200 mg QHS PO Last administered on 02/14/18 21:49; Start 02/14/18 at 21:00; Stop 02/15/18 at 14:47; Status DC Furosemide (Lasix) 20 mg DAILY PO ; Start 02/15/18 at 09:00 Guaifenesin (Mucinex Er) 1,200 mg BID PO Last administered on 02/16/18 08:23; Start 02/14/18 at 21:00 Fish Oil (Fish Oil) 2,000 mg DAILY PO Last administered on 02/15/18 08:27; Start 02/15/18 at 09:00 Non-Formulary Medication (Lutein ) 6 mg DAILY PO ; Start 02/15/18 at 09:00; Stop 02/15/18 at 09:00; Status DC Non-Formulary Medication (Resveratrol ) 50 mg DAILY PO ; Start 02/15/18 at 09:00 ; Stop 02/15/18 at 09:00; Status DC Non-Formulary Medication (Teriparatide (Forteo)) 20 mcg QHS SQ Last administered on 02/15/18at 21:38; Start 02/14/18 at 21:00 Non-Formulary Medication (Ubidecarenone (Coq-10)) 30 mg DAILY PO ; Start at 09:00; Status UNV Non-Formulary Medication (Umeclidinium Brm/Vilanterol Tr (Anoro Ellipta 62.5-25 Mcg Inh)) 1 each DAILY IH ; Start 02/15/18 at 09:00; Status UNV Non-Formulary Medication (Vortioxetine Hydrobromide (Trintellix)) 10 mg DAILY PO ; Start 02/15/18 at 09:00; Stop 02/15/18 at 12:10; Status DC Non-Formulary Medication 1 ea TID PO Last administered on 02/15/18at 08:29; Start 02/14/18 at 21:00; Stop 02/15/18 at 12:10; Status DC Non-Formulary Medication (Clotrimazole ) 1 tab 5XDAY PO Last administered on at 08:43; Start 02/14/18 at 22:00 Non-Formulary Medication (Fluconazole ) 1 tab DAILY PO Last administered on at 08:30; Start 02/15/18 at 09:00; Stop 02/15/18 at 09:02; Status DC Albuterol Sulfate (Ventolin) 2.5 mg Q6HRS NEB ; Start 02/15/18 at 12:00; Status Cancel Budesonide (Pulmicort) 0.5 mg RTBID NEB Last administered on 02/15/18at 10:52; Start 02/15/18 at 08:00; Stop 02/15/18 at 14:57; Status DC Coenzyme Q10 (Coenzyme Q10) 50 mg DAILY PO Last administered on 02/16/18at 08:31 ; Start 02/15/18 at 09:00 Desipramine HCl (Norpramin) 50 mg DAILY PO Last administered on 02/16/18at 08:43 ; Start 02/16/18 at 09:00 Cyclosporine (Restasis) 1 drop BID@0900,1500 OU Last administered on 02/16/18at 08:23; Start 02/15/18 at 12:00 Desipramine HCl (Norpramin) 1 mg AFTRNOON PO ; Start 02/15/18 at 13:00; Stop at 14:46; Status DC Non-Formulary Medication (Dextroamphetamine/ Amphetamine (Adderall Xr 30 Mg Capsule)) 30 mg DAILY PO Last administered on 02/16/18at 08:30; Start 02/15/18 at 14:30 Non-Formulary Medication (Umeclidinium Brm/Vilanterol Tr (Anoro Ellipta 62.5-25 Mcg Inh)) 1 each DAILY IH Last administered on 02/16/18at 08:31; Start 02/15/18 at 14:30 Non-Formulary Medication 1 ea BID PO Last administered on 02/16/18 08:29; Start 02/15/18 at 21:00 Non-Formulary Medication 1 ea BID PO Last administered on 02/16/18 08:29; Start 02/15/18 at 21:00 Non-Formulary Medication 1 ea BID PO Last administered on 02/16/18 08:29; Start 02/15/18 at 21:00 Non-Formulary Medication 1 ea BID PO Last administered on 02/16/18at 08:29; Start 02/15/18 at 21:00 Desipramine HCl (Norpramin) 25 mg AFTRNOON PO ; Start 02/16/18 at 13:00 Trazodone HCl (Desyrel) 100 mg QHS PO Last administered on 02/15/18 21:25; Start 02/15/18 at 21:00 Quetiapine Fumarate (SEROquel) 200 mg QHS PO Last administered on 02/15/18 21: 26; Start 02/15/18 at 21:00 Acetaminophen/ Butalbital/ Caffeine (Fioricet) 1 tab PRN Q4HRS PRN PO MIGRAINE HEADACHE Last administered on 02/15/18at 23:42; Start 02/15/18 at 23:30 Active Scripts Active Albuterol Sulfate Neb Soln (Albuterol Sulfate) 2.5 Mg/3 Ml Vial.neb 2.5 Mg NEB PRN Q4HRS PRN Duoneb 0.5-3(2.5) Mg/3 Ml (Albuterol/Ipratropium) 3 Ml Ampul.neb 3 Ml NEB RTQID Reported Desipramine Hcl 25 Mg Tablet 25 Mg PO TID Fluconazole 100 Mg Tablet 1 Tab PO DAILY Clotrimazole 10 Mg Bjorn 1 Tab PO 5XDAY [vinpocetine] [prevagen] Resveratrol 50 Mg Capsule 50 Mg PO DAILY Coq-10 (Ubidecarenone) 30 Mg Capsule 30 Mg PO DAILY Lutein 6 Mg Capsule 6 Mg PO DAILY Anoro Ellipta 62.5-25 Mcg Inh (Umeclidinium Brm/Vilanterol Tr) 1 Each Disk.w.dev 1 Each IH DAILY Forteo (Teriparatide) 2.4 Ml Pen.injctr 20 Mcg SQ QHS Trintellix (Vortioxetine Hydrobromide) 10 Mg Tablet 10 Mg PO DAILY Potassium Chloride 10 Meq Tablet.er 40 Meq PO BID Hydrocodone-Apap 5-325 (Hydrocodone Bit/Acetaminophen) 1 Each Tablet 1 Tab PO PRN Q6HRS PRN Calcium Carbonate 600 Mg Tablet 1,200 Mg PO Montelukast Sodium Tablet (Montelukast Sodium) 10 Mg Tablet 10 Mg PO HS LAST DOSE GIVEN: DATE: TIME: NEXT DOSE DUE: DATE: TIME: Melatonin 3 Mg Tablet 9 Mg PO QHS LAST DOSE GIVEN: DATE: TIME: NEXT DOSE DUE: DATE: TIME: Losartan-Hctz 100-25 Mg Tab (Losartan/Hydrochlorothiazide) 1 Each Tablet 1 Tab PO DAILY LAST DOSE GIVEN: DATE: TIME: NEXT DOSE DUE: DATE: TIME: Xanax (Alprazolam) 1 Mg Tablet 1 Mg PO TID LAST DOSE GIVEN: DATE: TIME: NEXT DOSE DUE: DATE: TIME: Synthroid (Levothyroxine Sodium) 50 Mcg Tablet 75 Mcg PO DAILY LAST DOSE GIVEN: DATE: TIME: NEXT DOSE DUE: DATE: TIME: Milk Of Magnesia (Magnesium Hydroxide) 2,400 Mg/10 Ml Oral.susp 2,400 Mg PO HS Take 30ML at bedtime for constipation Hold for loose stools. LAST DOSE GIVEN: DATE: TIME: NEXT DOSE DUE: DATE: TIME: Lipitor (Atorvastatin Calcium) 10 Mg Tablet 10 Mg PO QHS LAST DOSE GIVEN: DATE: TIME: NEXT DOSE DUE: DATE: TIME: Remeron (Mirtazapine) 15 Mg Tablet 15 Mg PO HS LAST DOSE GIVEN: DATE: TIME: NEXT DOSE DUE: DATE: TIME: Compazine (Prochlorperazine Maleate) 10 Mg Tablet 10 Mg PO PRN BID PRN LAST DOSE GIVEN: DATE: TIME: NEXT DOSE DUE: DATE: TIME: Colace (Docusate Sodium) 100 Mg Capsule 100 Mg PO DAILY LAST DOSE GIVEN: DATE: TIME: NEXT DOSE DUE: DATE: TIME: Adderall Xr 30 Mg Capsule (Dextroamphetamine/Amphetamine) 30 Mg Cap.er.24h 30 Mg PO DAILY LAST DOSE GIVEN: DATE: TIME: NEXT DOSE DUE: DATE: TIME: Seroquel Xr (Quetiapine Fumarate) 150 Mg Tab.er.24h 400 Mg PO HS LAST DOSE GIVEN: DATE: TIME: NEXT DOSE DUE: DATE: TIME: Benzonatate 100 Mg Capsule 200 Mg PO BID LAST DOSE GIVEN: DATE: TIME: NEXT DOSE DUE: DATE: TIME: Protonix (Pantoprazole Sodium) 40 Mg Tablet.dr 40 Mg PO DAILY LAST DOSE GIVEN: DATE: TIME: NEXT DOSE DUE: DATE: TIME: Aspirin 81 Mg Tab.chew 1 Tab PO DAILY LAST DOSE GIVEN: DATE: TIME: NEXT DOSE DUE: DATE: TIME: Vitamin D3 (Cholecalciferol (Vitamin D3)) 1,000 Unit Tablet 1,000 Unit PO DAILY LAST DOSE GIVEN: DATE: TIME: NEXT DOSE DUE: DATE: TIME: Glucosamine & Chondroitin Cap (Gluc 2KCL/Chondr/[place] Hy/Hy Ac) 1 Each Capsule 1 Cap PO BID LAST DOSE GIVEN: DATE: TIME: NEXT DOSE DUE: DATE: TIME: Multi Vitamin Daily (Multivitamin) 1 Each Tablet 1 Tab PO DAILY LAST DOSE GIVEN: DATE: TIME: NEXT DOSE DUE: DATE: TIME: Mucinex Dm Er 600-30 Mg Tablet (Guaifenesin/Dextromethorphan) 1 Each Tab.er.12h 2 Tab PO BID LAST DOSE GIVEN: DATE: TIME: NEXT DOSE DUE: DATE: TIME: Vitals/I & O Vital Sign - Last 24 Hours 02/15/18 02/15/18 02/15/18 02/15/18 10:52 10:53 11:10 15:52 Temp 99.1 Pulse 83 Resp 20 18 B/P (MAP) 97/64 (75) Pulse Ox 94 94 93 93 O2 Delivery Nasal Cannula Nasal Cannula Room Air O2 Flow Rate 2.0 2.0 02/15/18 02/15/18 02/15/18 02/15/18 15:54 16:09 16:53 20:00 Temp 98.3 Pulse 81 Resp 20 B/P (MAP) 122/78 (93) Pulse Ox 94 97 97 O2 Delivery Nasal Cannula Nasal Cannula Nasal Cannula O2 Flow Rate 2.0 2.0 02/15/18 02/15/18 02/15/18 02/15/18 20:25 21:21 22:25 22:25 Temp 97.4 Pulse 88 Resp 20 22 B/P (MAP) 117/82 (94) Pulse Ox 94 97 O2 Delivery Nasal Cannula Nasal Cannula Nasal Cannula Nasal Cannula O2 Flow Rate 2.0 2.0 02/15/18 02/16/18 02/16/18 02/16/18 23:10 05:27 05:34 08:00 Temp 97.6 98.4 Pulse 99 80 Resp 24 24 B/P (MAP) 137/80 (99) 134/79 (97) Pulse Ox 95 95 97 O2 Delivery Nasal Cannula Nasal Cannula Nasal Cannula Nasal Cannula O2 Flow Rate 2.0 2.0 2.0 Intake and Output 02/15/18 02/15/18 02/16/18 15:00 23:00 07:00 Intake Total 240 ml 1060 ml Balance 240 ml 1060 ml SAUD RODRÍGUEZ Jr, MD 02/17/18 0612: PROGRESS NOTES Assessment The patient was seen by Akilah Connors APRN and I have reviewed her findings and plan and agree with above. Due to staffing constraints, we did not have an attending available on this day to see the patient, MD WAYLON Figueroa Jr., JANAE M APRN Feb 16, 2018 10:01 SAUD RODRÍGUEZ Jr, MD Feb 17, 2018 06:12
[2018-02-16] MEDS: HYDROcodone/APAP 5/325MG 1 TAB TABLET PO PRN (10:03)
[2018-02-16 11:39] VITALS: BP 109/74
[2018-02-16 16:11] VITALS: BP 117/78
== END 2018-02-16 17:45 | DRG 682 ==
LOC: 1 SOUTH 18:06
PROVIDERS: ADMIT Family Medicine; ATTEND Family Medicine
DX: N17.9 Acute kidney failure, unspecified (principal); G93.41 Metabolic encephalopathy; E44.1 Mild protein-calorie malnutrition; I50.22 Chronic systolic (congestive) heart failure; J96.10 Chronic respiratory failure, unspecified whether with hypoxia or hypercapnia; I95.2 Hypotension due to drugs; E87.6 Hypokalemia; F32.9 Major depressive disorder, single episode, unspecified; J44.9 Chronic obstructive pulmonary disease, unspecified; I11.0 Hypertensive heart disease with heart failure; F43.10 Post-traumatic stress disorder, unspecified; K21.9 Gastro-esophageal reflux disease without esophagitis; E78.5 Hyperlipidemia, unspecified; E03.9 Hypothyroidism, unspecified; I71.2 Thoracic aortic aneurysm, without rupture; H54.7 Unspecified visual loss; E78.00 Pure hypercholesterolemia, unspecified; E86.0 Dehydration; T50.905A Adverse effect of unspecified drugs, medicaments and biological substances, initial encounter; Z99.81 Dependence on supplemental oxygen; Z79.899 Other long term (current) drug therapy; I69.398 Other sequelae of cerebral infarction; Z87.891 Personal history of nicotine dependence; Z90.710 Acquired absence of both cervix and uterus; Z88.5 Allergy status to narcotic agent; Z68.22 Body mass index [BMI] 22.0-22.9, adult; Y92.89 Other specified places as the place of occurrence of the external cause
CPT/HCPCS: 36415; 71046; 80048; 80053; 80307; 81001; 83605; 83880; 85025; 85379; 85651; 87086; 93005; 93306; 94640; J7620; J7626; Q0164; 97110; 97530; G0479

== ENCOUNTER 2018-04-06 17:01 | Emergency (ER) | payer MEDICARE, OTHER ==
[~2018-04-06] VITALS: Ht 162.6 cm; Wt 51.3 kg
[~2018-04-06 17:01] MED LIST changes: +CALC600T23 PO; +CLOT10TR PO; +DESI25TA PO; +FLUC100T4 PO; +HYDR-2758 PO; -IPRA3AMP NEB; +IPRA3AMP29 NEB; +LUTE6CAP3 PO; +POTA10TA10 PO; +RESV50CA PO; +TERI2.4P SQ; +UBID30CA9 PO; +UMEC1DIS IH; +VORT10TA PO; +prevagen; +vinpocetine
--- NOTE | 2018-04-06 17:12 | PHYS DOC ---
Past History Past Medical History: COPD Past Surgical History: , Hysterectomy, Other Smoking: Quit Greater Than 1 Year Alcohol Use: None Drug Use: None Adult General Chief Complaint Chief Complaint: SHORTNESS OF BREATH HPI HPI Patient is a 72-year-old female with a past history of COPD, on 3 L of home oxygen chronically, who presents to the emergency department for evaluation of increasing shortness of breath over the past 24 hours. She has had a nonproductive cough. She denies any pain or fever. EMS administered an albuterol nebulizer treatment, a DuoNeb nebulizer treatment, and administered 125 mg of Solu-Medrol. The patient is only feeling slightly better. She still wheezy with globally diminished air movement. Exertion seems to worsen the patient shortness of breath. There are no alleviating factors to her symptoms. Review of Systems Review of Systems Constitutional: Denies fever or chills [] Eyes: Denies change in visual acuity, redness, or eye pain [] HENT: Denies nasal congestion or sore throat [] Respiratory: As per history of present illness[] Cardiovascular: The patient denies any chest pain, palpitations, or orthopnea [ ] GI: Denies abdominal pain, nausea, vomiting, bloody stools or diarrhea [] : Denies dysuria or hematuria [] Musculoskeletal: Denies back pain or joint pain [] Integument: Denies rash or skin lesions [] Neurologic: Denies headache, focal weakness or sensory changes [] Endocrine: Denies polyuria or polydipsia [] All other systems were reviewed and found to be within normal limits, except as documented in this note. Current Medications Current Medications Current Medications Medications (Trade) Dose Ordered Sig/Ankit Start Time Stop Time Status Last Admin Dose Admin Albuterol/ Ipratropium (Duoneb) 3 ml 1X ONCE 04/06/18 17:15 04/06/18 17:16 UNV Allergies Allergies Allergies Coded Allergies Type Severity Reaction Last Updated Verified Latex, Natural Rubber Allergy Intermediate 11/29/16 No bacitracin Allergy Intermediate 11/29/16 No Physical Exam Physical Exam PHYSICAL EXAM: CONSTITUTIONAL: Well developed, well nourished HEAD: normocephalic, atraumatic EENT: PERRL, EOMI. Conjunctivae normal color, sclerae non-icteric; moist mucous membranes. NECK: Supple, non-tender; no meningismus. LUNGS: There are globally diminished breath sounds, with moderately increased work of breathing, and expedite wheezes scattered in all lung chaney. HEART: Regular rate and rhythm, no murmur CHEST: No deformity; non-tender ABDOMEN: The abdomen is soft, and non-tender, no masses or bruits. EXTREM: Normal ROM; no deformity, no calf tenderness. Normal pulses palpable in all extremities. There is no pedal edema. SKIN: No rash; no diaphoresis NEURO: Alert; normal speech and cognition; CN's grossly intact; strength grossly intact without focal deficit. BACK: No CVA TTP. EKG EKG [] Radiology/Procedures Radiology/Procedures [ER physician for limited chest X interpretation: Changes of COPD without definite confluent infiltrate.] Course & Med Decision Making Course & Med Decision Making 6:00 PM: Diagnostic workup is pending at this time. Care was turned over to Dr. Herrera at shift change, pending final disposition. Pertinent Labs and Imaging studies reviewed. (See chart for details) [] Dragon Disclaimer Dragon Disclaimer This electronic medical record was generated, in whole or in part, using a voice recognition dictation system. Departure Departure: Impression: Primary Impression: COPD with acute exacerbation Referrals: CLARA SAXENA MD (PCP) SAUD HARPER MD Apr 06, 2018 17:12
[2018-04-06] MEDS ORDERED: IPRATRPIUM/ALBUTEROL 0.5/2.5MG 3 ML NEBU. NEB ONE (17:30)
[2018-04-06 17:39] LABS: BASO # 0.1 x10^3/uL (0.0-0.2); BASO % 1 % (0-3); EOS # 0.4 x10^3/uL (0.0-0.7); EOS % 3 % (0-3); HEMATOCRIT 33.8 % (36.0-47.0); HEMOGLOBIN 11.3 g/dL (12.0-15.5); LYMPH % 25 % (24-48); MEAN CORPUSCULAR HEMOGLOBIN 32 pg (25-35); MEAN CORPUSCULAR HGB CONC 33 g/dL (31-37); MEAN CORPUSCULAR VOLUME 95 fL (79-100); MONO # 0.9 x10^3/uL (0.0-1.1); MONO % 7 % (0-9); NEUT # 7.9 x10^3uL (1.8-7.7); NEUT % 64 % (31-73); PLATELET COUNT 333 x10^3/uL (140-400); RED BLOOD COUNT 3.55 x10^6/uL (3.50-5.40); RED CELL DISTRIBUTION WIDTH 14.1 % (11.5-14.5); WHITE BLOOD COUNT 12.3 x10^3/uL (4.0-11.0)
[2018-04-06 18:00] LABS: BGAS PH 7.45 (7.35-7.45)
[2018-04-06 18:40] LABS: ALBUMIN 3.3 g/dL (3.4-5.0); ALBUMIN/GLOBULIN RATIO 0.9 (1.0-1.7); CALCIUM 10.4 mg/dL (8.5-10.1); CREATININE 0.8 mg/dL (0.6-1.0); GFR 70.5; MAGNESIUM 1.4 mg/dL (1.8-2.4); POTASSIUM 3.4 mmol/L (3.5-5.1); TOTAL BILIRUBIN 0.4 mg/dL (0.2-1.0); TOTAL PROTEIN 7.1 g/dL (6.4-8.2)
[2018-04-06 19:39] VITALS: BP 125/85
--- NOTE | 2018-04-07 07:39 | RAD ---
Portable chest, 04/06/2018: HISTORY: Shortness of breath Comparison is made to a study from 02/14/2018. The heart size and pulmonary vascularity are normal. There is a calcified granuloma in the right base. No pulmonary infiltrate is seen. There is no evidence of pleural fluid. IMPRESSION: No acute cardiopulmonary abnormality is detected. Electronically signed by: Luis F Song MD (04/07/2018 7:36 AM) [facility]
--- NOTE | 2018-04-07 07:42 | EKG ---
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
== END 2018-04-06 20:40 | disposition short-term general hospital (02) ==
LOC: ER 17:01
DX: J44.1 Chronic obstructive pulmonary disease with (acute) exacerbation (principal); Z87.891 Personal history of nicotine dependence; Z88.1 Allergy status to other antibiotic agents; Z91.040 Latex allergy status
CPT/HCPCS: 36415; 36600; 71045; 80053; 82553; 82803; 83735; 83880; 84484; 85025; 85610; 93005; 94640; 94660; 99285; J7620

== ENCOUNTER → 2018-06-01 | Outpatient (CLI) | payer MEDICARE, OTHER ==
--- NOTE | 2018-06-05 08:33 | RAD ---
DATE: 06/01/2018 EXAM: DIGITAL SCREEN BILAT W/CAD HISTORY: Screening COMPARISON: 09/07/2016, 02/12/2014 screening mammogram This study was interpreted with the benefit of Computerized Aided Detection (CAD ). Breast Density: SCATTERED The breast parenchyma shows scattered fibroglandular densities. Breast parenchyma level B. FINDINGS: Parenchymal distribution is stable. No suspicious calcification clusters or distortion. No dominant mass. Benign-appearing left axillary lymph nodes are present. IMPRESSION: BI-RADS CATEGORY: 2 BENIGN FINDING(S) RECOMMENDED FOLLOW-UP: PQRS compliance statement: Patient information was entered into a reminder system with a target due date in 1 year for the next mammogram. Mammography is a sensitive method for finding small breast cancers, but it does not detect them all and is not a substitute for careful clinical examination. A negative mammogram does not negate a clinically suspicious finding and should not result in delay in biopsying a clinically suspicious abnormality. "Our facility is accredited by the [employer] Mammography Program." [facility]
== END | disposition home or self-care (01) ==
LOC: MAMMO 15:59
PROVIDERS: ATTEND Family Medicine
DX: Z12.31 Encounter for screening mammogram for malignant neoplasm of breast (principal); I11.0 Hypertensive heart disease with heart failure; I50.22 Chronic systolic (congestive) heart failure; E11.9 Type 2 diabetes mellitus without complications; E78.5 Hyperlipidemia, unspecified; E78.00 Pure hypercholesterolemia, unspecified; J43.9 Emphysema, unspecified; E87.6 Hypokalemia; K21.9 Gastro-esophageal reflux disease without esophagitis; Z90.710 Acquired absence of both cervix and uterus; Z87.891 Personal history of nicotine dependence; Z86.73 Personal history of transient ischemic attack (TIA), and cerebral infarction without residual deficits; Z88.1 Allergy status to other antibiotic agents; Z88.5 Allergy status to narcotic agent; Z91.040 Latex allergy status; Z82.49 Family history of ischemic heart disease and other diseases of the circulatory system
CPT/HCPCS: 77067

== ENCOUNTER → 2019-07-02 | Outpatient (CLI) | payer MEDICARE, OTHER ==
[~2019-07-02] MED LIST changes: +ALBU2.5V8 IH; -ALBU8.5H8 IH; +HYDR-2155 PO; -HYDR-2758 PO; -HYDR-2762 PO; +HYDR-2765 PO; -MELA3TAB2 PO; +MELA3TAB56 PO; +MONT10TA80 PO; -MONT10TA9 PO; +OMEP40CA45 PO; -OMEP40CA5 PO; -QUET150T PO; +QUET150T2 PO
--- NOTE | 2019-07-03 11:47 | RAD ---
DATE: 07/02/2019 1:50 PM EXAM: DIGITAL SCREEN BILAT W/CAD HISTORY: Screening mammograms COMPARISON: June 01, 2018 Bilateral CC and MLO views of the breasts were performed. This study was interpreted with the benefit of Computerized Aided Detection (CAD). FINDINGS: Breast Density: SCATTERED The breast parenchyma shows scattered fibroglandular densities. Breast parenchyma level B Left upper outer intramammary lymph node, unchanged. No new suspicious masses, microcalcifications or architectural distortion is present to suggest malignancy in either breast. The visualized axillae are unremarkable. IMPRESSION: No mammographic evidence of malignancy. BI-RADS CATEGORY: 1 NEGATIVE RECOMMENDED FOLLOW-UP: 12M 12 MONTH FOLLOW-UP Annual screening mammography is recommended, unless clinically indicated sooner based on symptoms or change in physical exam. PQRS compliance statement: Patient information was entered into a reminder system with a target due date one year for the next mammogram. Mammography is a sensitive method for finding small breast cancers, but it does not detect them all and is not a substitute for careful clinical examination. A negative mammogram does not negate a clinically suspicious finding and should not result in delay in biopsying a clinically suspicious abnormality. "Our facility is accredited by the [employer] Mammography Program."
== END | disposition home or self-care (01) ==
LOC: MAMMO 13:39
PROVIDERS: ATTEND Family Medicine
DX: Z12.31 Encounter for screening mammogram for malignant neoplasm of breast (principal)
CPT/HCPCS: 77067